=== PATIENT | male | born 1935 | race Caucasian/White ===

== ENCOUNTER 2017-10-17 03:28 | Observation (INO) ==
--- NOTE | 2017-10-17 03:47 | Emergency Department Note ---
Disposition Clinical Impression: Pharyngeal edema, Tonsillar hypertrophy Leukocytosis Qualifiers: Leukocytosis type: unspecified Qualified Code(s): D72.829 - Elevated white blood cell count, unspecified Disposition: Admitted As Inpatient Condition: Fair Referrals: Gerald Rodriguez DO [Primary Care Provider] - Forms: Work/School Release, ED Satisfaction Letter General Adult HPI - General Chief complaint: ED Skin/Abscess/Foreign Body Stated complaint: Swelling on neck Time Seen by Provider: 10/17/17 03:36 Source: patient Mode of arrival: private vehicle Limitations: no limitations Nursing Notes Reviewed: Yes Vital Signs Reviewed: Yes - History of Present Illness HPI Narrative: 82-year-old male presents to the ER with a chief complaint of sore throat and neck swelling. Patient states he has had a sore throat for roughly 4 days. He was seen at urgent care yesterday and placed on amoxicillin. He reports that he took a dose of the amoxicillin and started noticing some redness and swelling to the front of his neck. States he felt short of breath and that happened. He stopped taking the amoxicillin after that. He is unsure if he has ever taken this before. He states that his voice has seemed or higher pitched. Does have some discomfort whenever he swallows. No nausea or vomiting. States he did have a fever there yesterday of 101. No other complaints. Pt Subjective Complaint: Sore throat, neck swelling Onset (ago): day(s) Location: other (Throat) Pain Scale: 10 Improves with: nothing Worsens with: nothing Associated symptoms: Reports: fever/chills. Denies: nausea/vomiting Treatments Prior to Arrival: other - Related Data Allergies Allergy/AdvReac Type Severity Reaction Status Date / Time rivaroxaban [From Xarelto] Allergy See Verified 10/17/17 03:32 Comments All systems ED: reviewed and negative except as stated. Constitutional: Reports: fever ENT ED: Reports: throat pain Gastrointestinal: Denies: nausea, vomiting Past Medical History - Past Medical History Attestation: Yes The following information was validated with the patient. Source: patient Medical history: Reports: atrial fibrillation, hypertension - Social History Smoking Status: Never smoker Smokeless Tobacco Status: No Alcohol use: Reports: none Drug use: Reports: none Physical Exam - General Limitations: no limitations General appearance: alert, in no apparent distress - Head Head exam: atraumatic, normocephalic - Eye Eye exam: Present: normal appearance - ENT ENT exam: normal exam - Expanded ENT Exam Throat exam: Present: tonsillar erythema, tonsillomegaly, tonsillar exudate, R peritonsillar mass - Neck Neck exam: Present: full ROM, other (There is some erythema and mild soft tissue swelling over the anterior neck) - Chest Chest inspection: Present: normal inspection, symmetric chest wall rise - Respiratory Respiratory exam: Present: normal lung sounds bilaterally - Cardiovascular Cardiovascular exam: Present: regular rate, normal rhythm, normal heart sounds - Abdominal Exam Abdominal exam: Present: soft, Non-Tender. Absent: tenderness - Extremities Exam Extremities exam: Present: normal inspection, full ROM - Expanded Upper Extremity Exam Shoulder exam: Present: normal inspection, full ROM Arm exam: Present: normal inspection, full ROM Elbow exam: Present: normal inspection, full ROM Forearm/Wrist exam: Present: normal inspection, full ROM Hand exam: Present: normal inspection, full ROM - Expanded Lower Extremity Exam Hip/Pelvis exam: Present: normal inspection, full ROM Upper leg exam: Present: normal inspection, full ROM Knee exam: Present: normal inspection, full ROM Lower leg exam: Present: normal inspection, full ROM Ankle exam: Present: normal inspection, full ROM Foot/toe exam: Present: normal inspection, full ROM - Skin Skin exam: Present: warm, dry Course Course Narrative: Patient seen and examined. Vital signs reviewed. We will get a strep swab as well as basic labs and CT scan for evaluation of peritonsillar abscess as well as the swelling in his anterior neck. - Reevaluation(s) Reevaluation #1: CT findings with tonsillar enlargement striation with soft tissue swelling into the hypopharynx. Imaging reviewed. ENT paged for consultation. We will give him a dose of clindamycin here and IV fluids for his tachycardia. Time: 06:13 - Consultations Consultation #1: Spoke with the on-call ENT provider Dr. Polanco. Discussed the patient's history exam imaging and labs. Recommends clindamycin and Decadron. They will see the patient in consultation. Vital Signs Temperature 98.2 F 10/17/17 03:29 Pulse Rate 114 10/17/17 03:29 Respiratory Rate 20 10/17/17 03:29 Blood Pressure 149/96 10/17/17 03:29 O2 Sat by Pulse Oximetry 95 10/17/17 03:29 Temperature 98.2 F 10/17/17 03:29 Pulse Rate 109 10/17/17 06:33 Respiratory Rate 18 10/17/17 06:33 Blood Pressure 149/110 10/17/17 06:33 O2 Sat by Pulse Oximetry 93 10/17/17 06:33 Oxygen Delivery Oxygen Delivery Room Air Medical Decision Making - MDM Narrative Medical decision making narrative: 82-year-old male presents to the ER due to sore throat for 4 days. Treated with amoxicillin starting yesterday. Noticed a change in his voice today. No difficulty handling secretions. No respiratory distress. Right tonsillar swelling. CT without evidence of abscess however there is soft tissue swelling to the hypopharynx. White count of 22.6. Case discussed with ENT. Patient given clindamycin and Decadron. Admitted to the hospitalist service with ENT consultation. - Lab Data Lab results reviewed: Yes I reviewed the patient's lab results. Result diagrams: 10/17/17 04:13 10/17/17 04:13 Lab Results 10/17/17 10/17/17 Range/Units 04:13 04:13 WBC 22.6 H (4.3-11.1) K/mcL RBC 4.28 (4.19-5.50) M/mcL Hgb 13.1 (12.9-16.9) g/dL Hct 38.8 (37.5-50.1) % MCV 90.7 (83.0-100.0) fL MCH 30.6 (28.0-33.3) pg MCHC 33.8 (31.6-35.5) g/dL RDW 13.2 (11.5-14.5) % Plt Count 129 L (140-400) K/mcL MPV 9.5 (9.4-12.4) fL Immature Gran % 2.4 (0-4) % Seg Neutrophils % 87.2 % Lymphocytes % 3.2 % Monocytes % 7.1 % Eosinophils % 0.0 % Basophils % 0.1 % Neutrophils # 19.7 H (1.6-8.9) K/mcL Lymphocytes # 0.7 (0.6-4.6) K/mcL Monocytes # 1.6 H (0.0-1.3) K/mcL Eosinophils # 0.0 (0.0-0.6) K/mcL Basophils # 0.0 (0.0-0.2) K/mcL Platelet Estimate Slight Decrease L (Normal) Sodium 127 L (136-145) mEq/L Potassium 4.2 (3.5-5.1) mEq/L Chloride 99 (98-107) mEq/L Carbon Dioxide 18 L (23-29) mEq/L BUN 17 (8-23) mg/dL Creatinine 0.78 (0.70-1.30) mg/dL Est GFR ( Amer) > 60 (> 60) Est GFR (Non-Af Amer) > 60 (> 60) BUN/Creatinine Ratio 22 (6-26) Glucose 134 H (70-105) mg/dL Calculated Osmolality 268 L (280-300) Calcium 9.0 (8.6-10.3) mg/dL - Radiology Data Radiology results reviewed: Yes I reviewed the patient's radiology results. Soft Tissue Neck CT 10/17/17 03:43 IMPRESSION: Stanton tonsillar and pharyngeal soft tissue swelling as described, favor infectious/ inflammatory etiology. Recommend follow-up after appropriate treatment. D/ / Rudy Miramontes MD / Rudy Miramontes MD Interpreting Provider: Rudy Miramontes MD S.B.A.R. - S.B.A.R. Situation: Demographics, MOA Background: Presenting Complaint, Relevant PMH, Meds, & Allergies Assessment: Course and respsone to treatment, Exam Concerns, Patient/Family Expectation, Pertinant Lab Results Recommendation: Barrier(s) to disposition, Recommendation based on pending studies, treatments, or consults S.B.A.R. Report Given to: Dr. Navarrete Attestation Statement - Attestation Attestation: I, Brigido Riley MD, personally evaluated this patient and discussed their management with the resident physician. I reviewed the resident's note and agree with the documented findings, medical decision making, and plan of care. 82-year-old male presents to the emergency department with a complaint of sore throat for 4 days prior to arrival. He was seen in urgent care yesterday and was given amoxicillin. He states he took one dose of the amoxicillin last evening and then after taking the amoxicillin he developed some swelling across the anterior neck as well as some increased pain and swelling in his throat. Some mild difficulty swallowing and breathing with some mild hoarseness of his voice. Patient states that he has had fever. On examination patient is a well-developed well-nourished well-appearing elderly male in no acute distress. He is alert and oriented 3. There is no cyanosis or diaphoresis. Patient is able to speak without difficulty. There does seem to be some slight muffling of his voice. Mucous membranes are moist. There is marked pharyngeal injection, especially on the right with moderate right asymmetric edema with swelling over to the midline. Neck is supple with no obvious lymphadenopathy. There is some localized subcutaneous edema to the mid anterior throat area. This is not firm or indurated or fluctuant. Breath sounds are clear and equal bilaterally. Heart regular. Abdomen soft and nontender with normal bowel sounds. Labs reviewed. WBC 22.6 with 87.2% segs. Soft tissue neck CT shows palatine tonsillar and pharyngeal soft tissue swelling, favor infectious/ inflammatory etiology. Dr. Rivera discussed with the ENT control system manager, Dr. Polanco. She recommended IV antibiotics and steroids and admission by the hospitalist. The hospitalist, Dr. Navarrete, was consulted and accepted the admission of the patient.
[2017-10-17 04:24] LABS: Basophils % 0.1 %; Hematocrit 38.8 % (37.5-50.1); Hemoglobin 13.1 g/dL (12.9-16.9); Immature Granulocytes % 2.4 % (0-4); Lymphocytes % 3.2 %; Mean Corpuscular HGB Conc 33.8 g/dL (31.6-35.5); Mean Corpuscular Hemoglobin 30.6 pg (28.0-33.3); Mean Corpuscular Volume 90.7 fL (83.0-100.0); Mean Platelet Volume 9.5 fL (9.4-12.4); Monocytes % 7.1 %; Platelet Count 129 K/mcL (140-400); Red Blood Count 4.28 M/mcL (4.19-5.50); Red Cell Distribution Width 13.2 % (11.5-14.5); Segmented Neutrophils % 87.2 %
[2017-10-17 04:25] LABS: Lymphocytes # 0.7 K/mcL (0.6-4.6); Monocytes # 1.6 K/mcL (0.0-1.3); Neutrophils # 19.7 K/mcL (1.6-8.9)
[2017-10-17 04:47] LABS: BUN/Creatinine Ratio 22 (6-26); Blood Urea Nitrogen 17 mg/dL (8-23); Carbon Dioxide 18 mEq/L (23-29); Chloride 99 mEq/L (98-107); Glucose 134 mg/dL (70-105); Osmolality,Calculated 268 (280-300); Potassium 4.2 mEq/L (3.5-5.1); Sodium 127 mEq/L (136-145); eGFR For African Americans > 60 (> 60); eGFR For Non-African Americans > 60 (> 60)
[2017-10-17 04:54] LABS: Platelet Estimate Slight Decrease (Normal)
[2017-10-17] MEDS ORDERED: Clindamycin 600 MG/50 ML 600 MG/50 ML IV.SOLN IVPB ONE (06:10)
[2017-10-17] MEDS ORDERED: 0.9 % Sodium Chloride 500 ML IVC ONE (06:10)
[2017-10-17] MEDS ORDERED: Dexamethasone 4 MG/ML VIAL IVP ONE (06:20)
--- NOTE | 2017-10-17 09:16 | ENT - Consult Note ---
<Ramona Rowe A - Last Filed: 10/17/17 15:30> Date of Encounter: 10/17/17 Time of Encounter: 09:06 Assessment and Plan (1) Pharyngeal edema Status: Acute Patient seen and examined at bedside today. Flexible Nasolaryngoscopy performed. Airway patent with some inflammation of the pharyngeal mucosa, supraglottic edema noted, open epiglottic space, and right inferior tonsil tissue hypertrophy. Patient with no respiratory distress, shortness of breath, or stridor noted. CT scan reviewed, which demonstrated a patent airway, Soft tissue swelling and thickening in the lateral and posterior pharyngeal rondon, and no abscess at this time. Patient should be monitored closely with continuous pulse ox, and head of bed elevated. Recommend additional doses of IV decadron q8h x3 doses and IV clindamycin. If pharyngeal swelling worsens or airway becomes compromised patient may require intubation or tracheostomy, continue to monitor closely at this time. (2) Tonsillitis Status: Acute Patient currently with asymmetrical enlargement of right tonsil. No signs Of abscess at this time. CT scan also reviewed which did not demonstrate abscess. Initial throat swab negative for strep, cultures pending. Patient started on IV clindamycin and IV Decadron. (3) Acute airway obstruction Status: Acute Airway noted to be patent at this time, as demonstrated by CT scan and noted upon examination with Flexible Nasolaryngoscopy today. Continue to monitor closely with continuous pulse ox and head of bed elevation. Patient should be rescoped with flexible nasolaryngoscopy before being discharged home to ensure no airway obstruction is present. History of Present Illness Consult date: 10/17/17 Reason for ENT Consult: airway complication Requesting physician: Murali Regan History of present illness: Patient is an 82 year old male, who presents to the emergency department with sore throat and associated throat swelling. Patient reports he has had a sore throat for approximately 4 days and was seen in urgent care recently and prescribed amoxicillin. He states he felt that he was having a reaction to the amoxicillin and discontinued taking it. He reports odynophagia and hoarseness, but denies any difficulty with swallowing, or any shortness of breath. Patient also reports fevers for several days and generalized weakness. Past Med Surg Social Fam HX - Past Medical History Medical history: atrial fibrillation, hypertension - Social History Smoking Status: Never smoker Smokeless Tobacco Status: No Alcohol use: none Drug use: none Medications and Allergies Aspirin [Lo-Dose Aspirin EC] 81 mg PO DAILY 10/17/17 [History] Finasteride [Proscar] 5 mg PO DAILY 10/17/17 [History] Gabapentin [Neurontin] 100 mg PO BID 10/17/17 [History] Nitroglycerin [Nitrostat] 0.4 mg SL Q5M PRN 10/17/17 [History] Simvastatin [Zocor] 20 mg PO HS 10/17/17 [History] Tamsulosin [Flomax] 0.4 mg PO DAILY 10/17/17 [History] Temazepam [Restoril] 30 mg PO HS 10/17/17 [History] amLODIPine [Norvasc] 5 mg PO DAILY 10/17/17 [History] 3 Allergy/AdvReac Type Severity Reaction Status Date / Time Amoxicillin Allergy Swelling Verified 10/20/17 20:50 of Lip/Tongue/Throat rivaroxaban [From Xarelto] AdvReac See Verified 10/17/17 06:56 Comments ENT - ROS - Constitutional Constitutional ROS: as per HPI - EENT Nose, mouth and throat: odynophagia, sore throat, throat swelling ENT Exam Initial Vital Signs Temp Pulse Resp BP Pulse Ox 98.2 F 114 20 149/96 95 10/17/17 03:29 10/17/17 03:29 10/17/17 03:29 10/17/17 03:29 10/17/17 03:29 - General physical appearance well developed, well nourished, no distress - Eyes PERRL, normal ocular movement - ENT normal pinna (tonsillar asymmetry noted, area of right tonsillar pillar and lingual tonsil enlarged and injected, with tonsil stone present, area noted to be firm and indurated with palpation, uvula midline, upper and lower dentures noted. Septum grossly midline, with normal inferior turbinates bilaterally. Left ear with cerumen impaction unable to visualize TM, and right ear with normal TM. ), normal nares, CN 2-12 grossly intact, Other - Neck no masses, trachea midline, no lymphadectomy - Respiratory normal expansion, normal respiratory effort, other (No stridor noted. ) Exam Initial Vital Signs Temp Pulse Resp BP Pulse Ox 98.2 F 114 20 149/96 95 10/17/17 03:29 02/15/18 03:29 10/17/17 03:29 10/17/17 03:29 10/17/17 03:29 Results - Labs 10/17/17 04:13 10/17/17 04:13 Abnormal lab results WBC 22.6 K/mcL (4.3-11.1) H 10/17/17 04:13 Plt Count 129 K/mcL (140-400) L 10/17/17 04:13 Neutrophils # 19.7 K/mcL (1.6-8.9) H 10/17/17 04:13 Monocytes # 1.6 K/mcL (0.0-1.3) H 10/17/17 04:13 Platelet Estimate Slight Decrease (Normal) L 10/17/17 04:13 Sodium 127 mEq/L (136-145) L 10/17/17 04:13 Carbon Dioxide 18 mEq/L (23-29) L 10/17/17 04:13 Glucose 134 mg/dL (70-105) H 10/17/17 04:13 Calculated Osmolality 268 (280-300) L 10/17/17 04:13 All other labs normal. Consult Discharge Plan - Plan Referrals: Gerald Rodriguez DO [Primary Care Provider] - <Sagrario Polanco - Last Filed: 10/21/17 08:07> Date of Encounter: 10/21/17 ENT Exam Initial Vital Signs Temp Pulse Resp BP Pulse Ox 98.2 F 114 20 149/96 95 10/17/17 03:29 10/17/17 03:29 10/17/17 03:29 10/17/17 03:29 10/17/17 03:29 Exam Initial Vital Signs Temp Pulse Resp BP Pulse Ox 98.2 F 114 20 149/96 95 10/17/17 03:29 10/17/17 03:29 10/17/17 03:29 10/17/17 03:29 10/17/17 03:29 Results - Labs 10/18/17 03:51 10/18/17 03:51 Abnormal lab results WBC 18.5 K/mcL (4.3-11.1) H 10/18/17 03:51 Plt Count 139 K/mcL (140-400) L 10/18/17 03:51 Neutrophils # 16.8 K/mcL (1.6-8.9) H 10/18/17 03:51 Platelet Estimate Slight Decrease (Normal) L 10/18/17 03:51 Sodium 127 mEq/L (136-145) L 10/18/17 03:51 Chloride 97 mEq/L (98-107) L 10/18/17 03:51 Carbon Dioxide 21 mEq/L (23-29) L 10/18/17 03:51 Creatinine 0.64 mg/dL (0.70-1.30) L 10/18/17 03:51 BUN/Creatinine Ratio 33 (6-26) H 10/18/17 03:51 Glucose 147 mg/dL (70-105) H 10/18/17 03:51 Calculated Osmolality 270 (280-300) L 10/18/17 03:51 All other labs normal. - Attending Attestation Patient was seen and examined by myself with nurse practioner. Bedside flexible laryngoscopy was performed at bedside. Please see procedure note. Agree with the above assessment and plan as this was formulated together.
--- NOTE | 2017-10-17 09:30 | Internal Med History&Physical ---
Date of Encounter: 10/17/17 Time of Encounter: 09:25 Assessment and Plan (1) Tonsillitis Current visit: Yes Status: Acute Rapid strep test was negative. ENT was consulted. They recommended clindamycin and dexamethasone. We will continue with clindamycin and monitor clinically. We will keep the patient nothing by mouth for now. (2) Sepsis Current visit: Yes Status: Acute Likely secondary to tonsillitis and pharyngitis. I will obtain blood cultures, lactic acid level, throat culture. He was started on clindamycin per ENT recommendations. I will continue with clindamycin for tonsillitis. We will monitor WBC trend and temperature curve. Qualifiers: Sepsis type: sepsis due to unspecified organism Qualified Code(s): A41.9 - Sepsis, unspecified organism (3) BPH (benign prostatic hyperplasia) Current visit: Yes Status: Acute Continue Flomax and finasteride. Qualifiers: Lower urinary tract symptom presence: symptoms present Lower urinary tract symptom detail: nocturia Qualified Code(s): N40.1 - Benign prostatic hyperplasia with lower urinary tract symptoms; R35.1 - Nocturia; R35.1 - Nocturia (4) Essential hypertension Current visit: Yes Status: Acute Continue with Norvasc (5) DVT prophylaxis Current visit: Yes Status: Acute Encourage ambulation. He is fully ambulatory and therefore no pharmacological prophylaxis is needed. (6) Hyponatremia Current visit: Yes Status: Acute Her medical record review appears to be chronic. Sodium in January 2016 was 131 and 135 and April 2014. Currently at 127, slightly worse than his baseline likely related to decreased oral intake. We will monitor. Internal Medicine - H&P: HPI Chief complaint: Sore throat Admitted From: Emergency Dept Plans for Post Hospital Care: Home History of present illness: Mr. Guzman is a 82 year old male with past medical history significant for hypertension and BPH who presented to the hospital for evaluation of sore throat. Symptoms started 4 days ago and got progressively worse. Yesterday he experienced 8/10 aching sore throat mostly on the right side, reports associated hoarseness but no difficulty swallowing or shortness of breath. Throat soreness is exacerbated by swallowing and he reports having a poor appetite for the last 4 days. Reports associated subjective fevers and generalized weakness. Measured temperature at the urgent care was 101.4. He was prescribed antibiotics however his symptoms do not improve. 2 nights ago he woke up to go to the bathroom and felt generally weak and while trying to climb back in the recliner he stood up and fell over. He denies any significant injury, denies loss of consciousness. A 10 point review of systems was negative except as above. Family history was reviewed and found to be noncontributory. Past Med Surg Social Fam HX - Past Medical History Medical history: atrial fibrillation, hypertension - Social History Smoking Status: Never smoker Smokeless Tobacco Status: No Alcohol use: none Drug use: none Internal Medicine - H&P: Meds Aspirin [Lo-Dose Aspirin EC] 81 mg PO DAILY 10/17/17 [History] Finasteride [Proscar] 5 mg PO DAILY 10/17/17 [History] Gabapentin [Neurontin] 100 mg PO BID 10/17/17 [History] Nitroglycerin [Nitrostat] 0.4 mg SL Q5M PRN 10/17/17 [History] Simvastatin [Zocor] 20 mg PO HS 10/17/17 [History] Tamsulosin [Flomax] 0.4 mg PO DAILY 10/17/17 [History] Temazepam [Restoril] 30 mg PO HS 10/17/17 [History] amLODIPine [Norvasc] 5 mg PO DAILY 10/17/17 [History] 3 Allergy/AdvReac Type Severity Reaction Status Date / Time rivaroxaban [From Xarelto] AdvReac See Verified 10/17/17 06:56 Comments All Systems PM: A 10-system review of systems was performed and is negative for pertinent findings except as documented above in the HPI. - Constitutional Vitals: Temp Pulse Resp BP Pulse Ox 98.2 F 109 18 149/110 93 10/17/17 03:29 10/17/17 06:33 10/17/17 06:33 10/17/17 06:33 10/17/17 06:33 General appearance: Present: A&O X 3, no acute distress, answers questions appropriately - Head Head exam: Present: atraumatic, normocephalic - Eye Eye exam: Present: PERRL, conjuntiva pink, sclera anicteric Pupils: Present: PERRL - ENT ENT exam: Present: mucous membranes moist Additional comments: Right tonsillar erythema and swelling without exudates or any visible bleeding. - Neck Neck exam general surgery: Present: supple, trachea midline. Absent: lymphadenopathy - Cardiovascular Cardiovascular exam: Present: RRR, +S1, +S2, systolic murmur. Absent: diastolic murmur, gallop, rubs - GI/Abdominal GI/Abdominal exam: Present: normal bowel sounds, soft, no peritoneal signs. Absent: distended, tenderness - Extremities Exam Extremities exam: Present: warm, radial pulses palpable and symmetrical. Absent : calf tenderness, cyanotic, pedal edema - Neurological Exam Neurological exam: Present: CN II-XII intact, oriented X3, no focal deficits. Absent: facial droop, speech deficit - Skin Skin exam: Present: dry, intact Internal Med - H&P Results - Labs CBC & Chem 7: 10/17/17 04:13 10/17/17 04:13 - Impressions CT soft tissue neck w con PHARYNX/LARYNX: There is marked soft tissue swelling and thickening involving the right palatine tonsil with a somewhat striated appearance. Soft tissue thickening extends to involve the lateral and posterior pharyngeal rondon with resultant narrowing of the piriform sinus. There is thickening of the lateral pharyngeal wall on the left as well, on both sides extending into the hypopharynx. No peritonsillar abscess. The immediate supraglottic region and vocal cords are normal in appearance. Base of tongue is normal in appearance. IMPRESSION: [place] tonsillar and pharyngeal soft tissue swelling as described, favor infectious/ inflammatory etiology. Recommend follow-up after appropriate treatment.
[2017-10-17] MEDS ORDERED: Acetaminophen 325 MG TABLET PO PRN (09:51)
[2017-10-17] MEDS: Dexamethasone 10 MG/ML VIAL IVP SCH ×3 (12:48→16:52)
--- NOTE | 2017-10-17 14:49 | ENT - Procedure Note ---
Date of procedure: 10/17/17 Pre-op diagnosis: Acute tonsillitis, airway obstruction Post-op diagnosis: same Procedure: Flexible laryngoscopy: Procedure was explained to the patient at the bedside verbal consent was obtained. Bilateral nares are sprayed with a 50-50 mixture of oxymetazoline and topical lidocaine. Time was given to allow anesthesia as well as decongestion of the nasal airway. Flexible laryngoscope was then advanced into the right naris. Nasal mucosa was within normal limits without lesion or mass. Scope was further advanced, nasopharynx was within normal limits. Tonsil was enlarged on the right and did extend inferiorly into the vallecula. There is also soft tissue swelling of the hypopharynx laterally on the right so that it was partially obstructing the visualization of the petiole of the epiglottis on the right side, this was easily transversed along the left side of the edema to visualize the glottis. True vocal cords had normal mucosa and normal movement with a good glottic opening. There was edema again that it was watery in nature and extended down the hypopharynx so that the edema was just superior to the glottis. This did not obstruct the glottis but did abut the glottic opening with vocalization. There was very minimal pooling of secretions. There is no purulence. Piriform sinus was open and healthy on the left. Scope was removed. Patient tolerated this procedure well. Patient with thickening of the mucosa of the hypopharynx extending to the subglottis and does reach just superior to the glottic opening but does not obstruct it. CPT: 10821 Laryngoscopy, flexible fiberoptic; diagnostic Anesthesia: topical Was there an cardiology physician assistant present: No Estimated blood loss (cc): 0 Specimens collected: none Condition: stable
[2017-10-17] MEDS: Clindamycin 600 MG/50 ML 600 MG/50 ML IV.SOLN IVPB SCH ×2 (16:52→23:23)
[2017-10-17] MEDS ORDERED: Gabapentin 100 MG CAPSULE PO SCH (21:00)
[2017-10-17] MEDS: Temazepam 15 MG CAPSULE PO SCH ×2 (21:39→23:23)
[2017-10-18 04:17] VITALS: BP 161/74
[2017-10-18 04:32] LABS: Basophils % 0.2 %; Hematocrit 41.4 % (37.5-50.1); Hemoglobin 14.2 g/dL (12.9-16.9); Immature Granulocytes % 1.6 % (0-4); Lymphocytes # 0.6 K/mcL (0.6-4.6); Lymphocytes % 3.4 %; Mean Corpuscular HGB Conc 34.3 g/dL (31.6-35.5); Mean Corpuscular Hemoglobin 30.9 pg (28.0-33.3); Monocytes # 0.8 K/mcL (0.0-1.3); Monocytes % 4.1 %; Neutrophils # 16.8 K/mcL (1.6-8.9); Platelet Count 139 K/mcL (140-400); Red Cell Distribution Width 13.2 % (11.5-14.5); Segmented Neutrophils % 90.7 %
[2017-10-18 05:03] LABS: BUN/Creatinine Ratio 33 (6-26); Blood Urea Nitrogen 21 mg/dL (8-23); Calcium 9.2 mg/dL (8.6-10.3); Carbon Dioxide 21 mEq/L (23-29); Chloride 97 mEq/L (98-107); Glucose 147 mg/dL (70-105); Osmolality,Calculated 270 (280-300); Potassium 4.3 mEq/L (3.5-5.1); Sodium 127 mEq/L (136-145); eGFR For African Americans > 60 (> 60); eGFR For Non-African Americans > 60 (> 60)
[2017-10-18 05:35] LABS: Platelet Estimate Slight Decrease (Normal)
[2017-10-18] MEDS ORDERED: *HR* LORazepam 2 MG/ML VIAL IVP ONE (06:17)
[2017-10-18] MEDS: Clindamycin 600 MG/50 ML 600 MG/50 ML IV.SOLN IVPB SCH (06:55)
[2017-10-18] MEDS ORDERED: amLODIPine 5 MG TABLET PO SCH (09:00)
[2017-10-18] MEDS ORDERED: Finasteride 5 MG TABLET PO SCH (09:00)
--- NOTE | 2017-10-18 15:13 | ENT - Progress Note ---
Date of Encounter: 10/18/17 Time of Encounter: 15:10 - Assessment and Plan (1) Pharyngeal edema Status: Acute Patient seen and examined at bedside today. Flexible Nasolaryngoscopy repeated with Dr. Rolle ENT. Airway patent with some inflammation of the pharyngeal mucosa , supraglottic edema noted, open epiglottic space, and right inferior tonsil tissue hypertrophy. Patient with no respiratory distress, shortness of breath, or stridor noted. Continue to monitor closely with continuous pulse ox, and head of bed elevated. Continue IV clindamycin. (2) Tonsillitis Status: Acute Final throat culture is negative for strep. (3) Acute airway obstruction Status: Acute Airway without compromise upon examination with Flexible Nasolaryngoscopy today. Continue to monitor closely with continuous pulse ox and head of bed elevation. Patient should be rescoped with flexible nasolaryngoscopy before being discharged home to ensure no airway obstruction is present. Subjective Patient reports: no new complaints, tolerating liquids well, tolerating a regular diet, voiding w/o difficulty, afebrile Objective Initial Vital Signs Temp Pulse Resp BP Pulse Ox 98.2 F 114 20 149/96 95 10/17/17 03:29 10/17/17 03:29 10/17/17 03:29 10/17/17 03:29 10/17/17 03:29 - General physical appearance well developed, well nourished, no distress - Eyes PERRL, normal ocular movement - ENT normal pinna, normal nares, CN 2-12 grossly intact, Other - Neck no masses, trachea midline, no lymphadectomy - Respiratory normal expansion, normal respiratory effort - Labs 10/18/17 03:51 10/18/17 03:51 Diabetes panel 10/18/17 Range/Units 03:51 Sodium 127 L (136-145) mEq/L Potassium 4.3 (3.5-5.1) mEq/L Chloride 97 L (98-107) mEq/L Carbon Dioxide 21 L (23-29) mEq/L BUN 21 (8-23) mg/dL Creatinine 0.64 L (0.70-1.30) mg/dL Glucose 147 H (70-105) mg/dL Calcium 9.2 (8.6-10.3) mg/dL Calcium panel 10/18/17 Range/Units 03:51 Calcium 9.2 (8.6-10.3) mg/dL Pituitary panel 10/18/17 Range/Units 03:51 Sodium 127 L (136-145) mEq/L Potassium 4.3 (3.5-5.1) mEq/L Chloride 97 L (98-107) mEq/L Carbon Dioxide 21 L (23-29) mEq/L BUN 21 (8-23) mg/dL Creatinine 0.64 L (0.70-1.30) mg/dL Glucose 147 H (70-105) mg/dL Calcium 9.2 (8.6-10.3) mg/dL Adrenal panel 10/18/17 Range/Units 03:51 Sodium 127 L (136-145) mEq/L Potassium 4.3 (3.5-5.1) mEq/L Chloride 97 L (98-107) mEq/L Carbon Dioxide 21 L (23-29) mEq/L BUN 21 (8-23) mg/dL Creatinine 0.64 L (0.70-1.30) mg/dL Glucose 147 H (70-105) mg/dL Calcium 9.2 (8.6-10.3) mg/dL Consult Discharge Plan - Plan Referrals: Gerald Rodriguez DO [Primary Care Provider] -
--- NOTE | 2017-10-20 17:36 | Electrocardiograph Report ---
[place] [id number] Test Date: 2017-10-17 Pat Name: Harry Guzman Department: 103 Room: [facility] Gender: M Accountant Tax: BEV : 1935 Requested By: Murali Regan Order Number: [id number] Reading MD: Lubna Gasca Measurements Intervals [place] Rate: 95 P: OK: 0 QRS: -73 QRSD: 174 T: 9 QT: 379 QTc: 432 Interpretive Statements ATRIAL FIBRILLATION RIGHT BUNDLE BRANCH BLOCK [120+ ms QRS DURATION, UPRIGHT V1, 40+ ms S IN I/aVL/V4/V5/V6] LEFT ANTERIOR FASCICULAR BLOCK [QRS AXIS <= -45, QR IN I, RS IN II] Electronically Signed On 10-20-2017 17:35:35 EST by Lubna Gasca
== END 2017-10-18 08:35 | disposition left against medical advice (07) ==
LOC: EMEROO 03:28 → 2SOUTHHOLD 03:28 → 3NENU 18:20
PROVIDERS: ADMIT Internal Medicine; ATTEND Internal Medicine

== ENCOUNTER 2017-10-20 20:34 | Inpatient (IN) ==
[2017-10-20] MEDS ORDERED: Dexamethasone 4 MG/ML VIAL IVP ONE (21:47)
[2017-10-20] MEDS ORDERED: Ketorolac 15 MG/ML VIAL IVP ONE (23:16)
[2017-10-20] MEDS ORDERED: Oxymetazoline Nasal SPRAY BOTTLE NS ONE (23:35)
--- NOTE | 2017-10-21 00:19 | Emergency Department Note ---
Disposition Clinical Impression: Pharyngeal or nasopharyngeal edema Disposition: Admitted As Inpatient Condition: Good Time of Disposition: 00:30 General Adult HPI - General Chief complaint: ED Allergic Reaction Stated complaint: throat swelling Time Seen by Provider: 10/20/17 21:26 Source: patient, family Limitations: no limitations Nursing Notes Reviewed: Yes Vital Signs Reviewed: Yes - History of Present Illness HPI Narrative: 82-year-old male presents to the ED because of painful swelling of his throat. He began last week with sore throat and was given a dose of amoxicillin. He subsequently developed worsening swelling and required admission to the hospital. Fiberoptic laryngoscopy revealed moderate edema of the right pharynx extending down to the level of his vocal cords. He was started on IV steroids with plans of continuing this for a couple of days. However, that night he became very agitated and left the hospital AGAINST MEDICAL ADVICE. He now returns because he feels the swelling is again worsening. He has pain with swallowing but no dyspnea. No voice changes. Onset (ago): day(s) Location: neck Pain Severity: moderate Pain Scale: 7 Quality: dull, constant Consistency: constant Improves with: nothing Worsens with: nothing Associated symptoms: Reports: denies other symptoms. Denies: shortness of breath - Related Data Home Medications Medication Instructions Recorded Confirmed Aspirin [Lo-Dose Aspirin EC] 81 mg PO DAILY 10/17/17 10/17/17 Finasteride [Proscar] 5 mg PO DAILY 10/17/17 10/17/17 Gabapentin [Neurontin] 100 mg PO BID 10/17/17 10/17/17 Nitroglycerin [Nitrostat] 0.4 mg SL Q5M PRN 10/17/17 10/17/17 Simvastatin [Zocor] 20 mg PO HS 10/17/17 10/17/17 Tamsulosin [Flomax] 0.4 mg PO DAILY 10/17/17 10/17/17 Temazepam [Restoril] 30 mg PO HS 10/17/17 10/17/17 amLODIPine [Norvasc] 5 mg PO DAILY 10/17/17 10/17/17 Allergies Allergy/AdvReac Type Severity Reaction Status Date / Time Amoxicillin Allergy Swelling Verified 10/20/17 20:50 of Lip/Tongue/Throat rivaroxaban [From Xarelto] AdvReac See Verified 10/17/17 06:56 Comments All systems ED: reviewed and negative except as stated. Constitutional: Denies: fever Eyes: Denies: as per HPI ENT ED: Denies: as per HPI, ear pain Cardiovascular: Denies: chest pain Respiratory: Denies: cough Gastrointestinal: Denies: nausea, vomiting Past Medical History - Past Medical History Attestation: Yes The following information was validated with the patient. Source: patient Medical history: Reports: atrial fibrillation, hypertension - Social History Smoking Status: Never smoker Smokeless Tobacco Status: No Alcohol use: Reports: none Drug use: Reports: none Physical Exam - General Limitations: no limitations General appearance: alert, in no apparent distress - Head Head exam: atraumatic, normocephalic - Eye Eye exam: Present: normal appearance - ENT ENT exam: other (Moderate edema of the right soft palate with effacement of the tonsillar pillars. Visible airway is otherwise patent. No stridor.) - Neck Neck exam: Present: normal inspection - Chest Chest inspection: Present: normal inspection - Respiratory Respiratory exam: Present: normal lung sounds bilaterally. Absent: respiratory distress - Cardiovascular Cardiovascular exam: Present: regular rate, normal rhythm - Abdominal Exam Abdominal exam: Present: soft, Non-Tender - Extremities Exam Extremities exam: Present: normal inspection - Back Exam Back exam: Present: normal inspection - Neurological Exam Neurological exam: Present: alert, oriented X3 - Psychiatric Psychiatric exam: Present: normal affect - Skin Skin exam: Present: warm, dry Course - Reevaluation(s) Reevaluation #1: Patient agreed to allow me to do fiberoptic laryngoscopy. Both nares were packed with a 50-50 solution of Afrin and viscous lidocaine. She was sat upright position and scope was passed to the right area without difficulty. However, once again into the nasopharynx and was moderate edema that made it difficult to continue passing the scope. I was able to navigate this towards his left side and get down to where I could visualize the epiglottis. The epiglottis itself appeared to have normal anatomy but was displaced towards the left by the pharyngeal edema. Vallecula was fairly edematous. I was able to visualize the vocal cords directly and had good mobility. The edema was encroaching upon the right vocal cord. Unable to visualize the arytenoids. D/W ; will see in the ED and repeat the fiberoptic laryngoscopy D/W Dr. Melton to admit Time: 00:19 Vital Signs Temperature 98.9 F 10/20/17 20:51 Pulse Rate 118 10/20/17 20:51 Respiratory Rate 16 10/20/17 20:51 Blood Pressure 133/72 10/20/17 20:51 O2 Sat by Pulse Oximetry 95 10/20/17 20:51 Temperature 98.9 F 10/20/17 20:51 Pulse Rate 118 10/20/17 20:51 Respiratory Rate 16 10/21/17 01:02 Blood Pressure 129/78 10/21/17 01:02 O2 Sat by Pulse Oximetry 96 10/21/17 01:26 Oxygen Delivery Oxygen Delivery Room Air
--- NOTE | 2017-10-21 01:03 | ENT - Consult Note ---
Date of Encounter: 10/21/17 Time of Encounter: 12:30 Assessment and Plan (1) Acute airway obstruction Current Visit: Yes Status: Acute Patient was admitted again based on 10 mg of Decadron be observed in the hospital and closely followed and not concerned with keeping him nothing by mouth at this point but if patient does not have total response to steroids over the next several days a biopsy might be appropriate also recommend appropriate antibiotic therapy 3 g Unasyn might be appropriate if not penicillin allergic History of Present Illness Reason for ENT Consult: airway complication History of present illness: White male 82 years of age admitted last week to the hospital for right pharyngeal swelling treated with IV steroids and eventually 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 After About 48 hours of hospitalization he was doing okay and came back in tonight because he felt like he was given some swelling again but is not as bad as before he is having some difficulty swallowing but not a lot of discomfort no temperature elevation old CT reviewed findings seem to be fairly consistent with the findings on the previous CT no CT was obtained tonight Past Med Surg Social Fam HX - Past Medical History Medical history: atrial fibrillation, hypertension - Social History Smoking Status: Never smoker Smokeless Tobacco Status: No Alcohol use: none Drug use: none Medications and Allergies Aspirin [Lo-Dose Aspirin EC] 81 mg PO DAILY 10/17/17 [History] Finasteride [Proscar] 5 mg PO DAILY 10/17/17 [History] Gabapentin [Neurontin] 100 mg PO BID 10/17/17 [History] Nitroglycerin [Nitrostat] 0.4 mg SL Q5M PRN 10/17/17 [History] Simvastatin [Zocor] 20 mg PO HS 10/17/17 [History] Tamsulosin [Flomax] 0.4 mg PO DAILY 10/17/17 [History] Temazepam [Restoril] 30 mg PO HS 10/17/17 [History] amLODIPine [Norvasc] 5 mg PO DAILY 10/17/17 [History] 3 Allergy/AdvReac Type Severity Reaction Status Date / Time Amoxicillin Allergy Swelling Verified 10/20/17 20:50 of Lip/Tongue/Throat rivaroxaban [From Xarelto] AdvReac See Verified 10/17/17 06:56 Comments ENT Exam Initial Vital Signs Temp Pulse Resp BP Pulse Ox 98.9 F 118 16 133/72 95 10/20/17 20:51 10/20/17 20:51 10/20/17 20:51 10/20/17 20:51 10/20/17 20:51 - General physical appearance well developed, well nourished, no distress, no pain. negative: moderate distress, severe distress, moderate pain, severe pain, cachectic, obese - Eyes PERRL, normal ocular movement, icteric - ENT normal pinna, normal nares, normal mucosa, no hearing loss, no congestion, Other (Flexible endoscopy performed through the right nostril revealing right pharyngeal swelling obliterating the right piriform the swelling was also palpated with a finger and could be seen in the posterior pharynx on oral pharyngeal exam). negative: decreased hearing, deviated nasal septum, nasal discharge, poor snf, dentures, mucosal exudate, dry mucosa - Neck no masses, trachea midline, no lymphadectomy. negative: deviated trachea, diffuse goiter, limited ROM - Respiratory normal expansion, normal respiratory effort, clear to percussion, clear to auscultation - Abdomen Abdomen: soft, non tender, bowel sounds, no tender, no surgical scars - Integumentary no rash, no growths, no abnormal pigmentation - Neurologic normal coordination, normal sensation - Musculoskeletal normal gait, normal posture - Psychiatric oriented to time, oriented to person, oriented to place, speech is normal, memory intact Exam Initial Vital Signs Temp Pulse Resp BP Pulse Ox 98.9 F 118 16 133/72 95 10/20/17 20:51 10/20/17 20:51 10/20/17 20:51 10/20/17 20:51 10/20/17 20:51 Results - Labs All other labs normal. Consult Discharge Plan - Plan Referrals: Gerald Rodriguez DO [Primary Care Provider] -
[2017-10-21] MEDS ORDERED: Naloxone 0.4 MG/ML INJ IVP PRN ×2 (04:30→04:45)
--- NOTE | 2017-10-21 04:33 | Internal Med History&Physical ---
<Alan Melton P - Last Filed: 10/21/17 04:48> Date of Encounter: 10/21/17 Internal Medicine - H&P: HPI History of present illness: Mr. Guzman is a 82 year old male Internal Medicine - H&P: Meds Aspirin [Lo-Dose Aspirin EC] 81 mg PO DAILY 10/17/17 [History] Finasteride [Proscar] 5 mg PO DAILY 10/17/17 [History] Gabapentin [Neurontin] 100 mg PO BID 10/17/17 [History] Nitroglycerin [Nitrostat] 0.4 mg SL Q5M PRN 10/17/17 [History] Simvastatin [Zocor] 20 mg PO HS 10/17/17 [History] Tamsulosin [Flomax] 0.4 mg PO DAILY 10/17/17 [History] Temazepam [Restoril] 30 mg PO HS 10/17/17 [History] amLODIPine [Norvasc] 5 mg PO DAILY 10/17/17 [History] 3 Allergy/AdvReac Type Severity Reaction Status Date / Time Amoxicillin Allergy Swelling Verified 10/20/17 20:50 of Lip/Tongue/Throat rivaroxaban [From Xarelto] AdvReac See Verified 10/17/17 06:56 Comments All Systems PM: A 10-system review of systems was performed and is negative for pertinent findings except as documented above in the HPI. - Constitutional Vitals: Temp Pulse Resp BP Pulse Ox 97.6 F 102 18 189/105 95 10/21/17 04:27 10/21/17 04:27 10/21/17 04:27 10/21/17 04:27 10/21/17 04:27 - Attending Attestation I examined this patient and my medical decision-making was reviewed with the Resident Physician. I agree with the documented findings, disposition and treatment plan as described except to the extent set forth below. I have examined this patient in the emergency room #25 Patient's daughter was at bedside. 82-year-old male Admitted with recurrent swelling/hoarseness of voice. Patient was recently signed out AMA from this hospital. Came with worsening difficulty in talking. ENT evaluation was in the emergency room suggestive of a vocal cord edema. Patient was started on IV antibiotics: azithromycin, as he is allergic to amoxicillin. Plan: Continue steroids/antibiotics for now. We will follow the recommendations from ENT. <Wanda Roe - Last Filed: 10/21/17 06:57> Date of Encounter: 10/21/17 Time of Encounter: 03:00 Internal Medicine - H&P: HPI Chief complaint: throat pain Admitted From: Home History of present illness: Pt is an 82 year old male who presents with c/o throat pain and swelling. Patient was admitted to the hospital on 10/17/17 for angioedema that developed after taking amoxicillin prescribed for a sore throat the day before. During that admission, he was evaluated by ENT and a flexible laryngoscopy revealed mucosal thickening of hypopharynx that extended to the level of the vocal cords without obstructing the glottis. He was started on IV steroids with intention of him staying a couple days to continue IV steroids, but pt left AMA. At home, he reports using ice packs to help decrease the right-sided throat swelling and was taking advil for pain relief, but came back to [place] today as these things were no longer helping. He admits to odynophagia with both liquids and solids; states steroids helped decrease the pain on swallowing. He denies difficulty breathing but admits to feeling like his voice sounds different. In the ED, he was given 10mg decadron IVP and evaluated by ENT (Dr. Rolle) with another flexible laryngoscopy. Laryngoscopy showed the epiglottis being displaced towards the left and edema encroaching upon the right vocal cord. He was admitted for steroid therapy and observation. Past Med Surg Social Fam HX - Past Medical History Medical history: atrial fibrillation, hypertension - Social History Smoking Status: Never smoker Smokeless Tobacco Status: No Alcohol use: none Drug use: none - Family History Father Living Status: Hx Family Cardiac Disorders: Yes (CAD) Mother Living Status: Hx Family Cardiac Disorders: Yes (CHF) All Systems PM: A 10-system review of systems was performed and is negative for pertinent findings except as documented above in the HPI. - Constitutional Vitals: Temp Pulse Resp BP Pulse Ox 98 F 94 16 153/79 96 10/21/17 01:11 10/21/17 01:11 10/21/17 01:11 10/21/17 01:11 10/21/17 01:26 General appearance: Present: A&O X 3, no acute distress, answers questions appropriately
[2017-10-21] MEDS ORDERED: Nitroglycerin 0.4 MG TAB.SUBL SL PRN (04:36)
[2017-10-21] MEDS ORDERED: Azithromycin 500 MG in D5% in Water 250 ML IVPB SCH (05:00)
[2017-10-21 07:18] LABS: Basophils % 0.2 %; Hematocrit 42.2 % (37.5-50.1); Hemoglobin 14.6 g/dL (12.9-16.9); Lymphocytes # 0.7 K/mcL (0.6-4.6); Lymphocytes % 6.4 %; Mean Corpuscular HGB Conc 34.6 g/dL (31.6-35.5); Mean Corpuscular Hemoglobin 30.7 pg (28.0-33.3); Mean Corpuscular Volume 88.7 fL (83.0-100.0); Monocytes # 0.4 K/mcL (0.0-1.3); Monocytes % 3.4 %; Platelet Count 183 K/mcL (140-400); Red Blood Count 4.76 M/mcL (4.19-5.50); Red Cell Distribution Width 13.1 % (11.5-14.5)
[2017-10-21 07:59] LABS: BUN/Creatinine Ratio 28 (6-26); Blood Urea Nitrogen 16 mg/dL (8-23); Calcium 8.7 mg/dL (8.6-10.3); Carbon Dioxide 26 mEq/L (23-29); Chloride 99 mEq/L (98-107); Glucose 161 mg/dL (70-105); Osmolality,Calculated 279 (280-300); Potassium 3.9 mEq/L (3.5-5.1); Sodium 132 mEq/L (136-145); eGFR For African Americans > 60 (> 60); eGFR For Non-African Americans > 60 (> 60)
[2017-10-21] MEDS: Gabapentin 100 MG CAPSULE PO SCH ×3 (09:47→21:55)
[2017-10-21] MEDS: amLODIPine 5 MG TABLET PO SCH ×2 (09:47→15:57)
[2017-10-21] MEDS: Finasteride 5 MG TABLET PO SCH ×2 (09:47→15:57)
[2017-10-21] MEDS: Aspirin Enteric Coated 81 MG Tablet PO SCH ×2 (09:47→15:57)
[2017-10-21] MEDS ORDERED: Dexamethasone 4 MG/ML VIAL IVP ONE (14:59)
[2017-10-21] MEDS: 0.9 % Sodium Chloride 1,000 ML IVC SCH (16:05)
[2017-10-21] MEDS: Clindamycin 600 MG/50 ML 600 MG/50 ML IV.SOLN IVPB SCH (16:05)
--- NOTE | 2017-10-21 16:06 | Internal Med Progress Note ---
Date of Encounter: 10/21/17 Time of Encounter: 16:05 - Assessment and plan (1) Tonsillitis Current Visit: Yes Status: Acute Assessment and plan: presented to ED with c/o neck pain and swelling on 10/17/17. Soft tissue neck CT with palatine tonsillar and pharyngeal soft tissue swelling. He was ttreated with IV ATB and setrpids but left AMA. He retunrs to ER on 10/20/17 with similar complaints. Evaluated by ENT in ED. Repeat soft tissue neck CT essentially unchanged. Received one-time dose IV Decadron. Continue IV clindamycin, steroids. ENT following (2) Pharyngeal edema Current Visit: Yes Status: Acute Assessment and plan: secondary to tonsillitis. Plan as noted above. (3) Essential hypertension Current Visit: No Status: Acute Assessment and plan: per hx. BP uncontrolled. Cont home BP medications. Add low dose BB. Monitor BP and titrate PRN (4) DVT prophylaxis Current Visit: No Status: Acute Assessment and plan: heparin - Subjective Interval history: Seen and examined at bedside, patient is new to me. Information obtained from chart review and patient report. Still with the swelling in his neck but overall significantly improved. He is having trouble swallowing small pills and liquids this morning. ENT aware of admission. - Constitutional Vitals: Temp Pulse Resp BP Pulse Ox 98.2 F 107 16 187/79 93 10/21/17 15:33 10/21/17 15:33 10/21/17 15:33 10/21/17 15:33 10/21/17 15:33 General appearance: Present: A&O X 3, no acute distress, answers questions appropriately - Head Head exam: Present: atraumatic, normocephalic - Eye Eye exam: Present: PERRL, conjuntiva pink, sclera anicteric Pupils: Present: PERRL - Neck Neck exam general surgery: Present: supple, trachea midline. Absent: lymphadenopathy Additional comments: + neck swelling - Respiratory Respiratory exam: Present: CTAB. Absent: accessory muscle use, rales, rhonchi, wheezes - Cardiovascular Cardiovascular exam: Present: RRR, +S1, +S2. Absent: diastolic murmur, gallop, rubs, systolic murmur - GI/Abdominal GI/Abdominal exam: Present: normal bowel sounds, soft, no peritoneal signs. Absent: distended, tenderness - Extremities Exam Extremities exam: Present: warm, radial pulses palpable and symmetrical. Absent : calf tenderness, cyanotic, pedal edema - Neurological Exam Neurological exam: Present: CN II-XII intact, oriented X3, no focal deficits. Absent: pronater drift, facial droop, speech deficit - Skin Skin exam: Present: dry, intact Internal Medicine: Result - Labs CBC & Chem 7: 10/21/17 07:08 10/21/17 07:08 Labs: Short CBC 10/21/17 Range/Units 07:08 WBC 11.2 H (4.3-11.1) K/mcL Hgb 14.6 (12.9-16.9) g/dL Hct 42.2 (37.5-50.1) % Plt Count 183 (140-400) K/mcL Neutrophils # 10.0 H (1.6-8.9) K/mcL BMP 10/21/17 07:08 Sodium 132 L Potassium 3.9 Chloride 99 Carbon Dioxide 26 BUN 16 Creatinine 0.58 L Glucose 161 H Calcium 8.7 Consult Discharge Plan - Plan Referrals: Gerald Rodriguez DO [Primary Care Provider] -
--- NOTE | 2017-10-21 17:04 | Operative Note ---
Date of procedure: 10/21/17 Pre-op diagnosis: pharyngeal edema Post-op diagnosis: same
--- NOTE | 2017-10-21 17:13 | Event Note ---
Date of Encounter: 10/21/17 Time of Encounter: 17:05 Patient seen and examined at bedside today. Overall voice quality is good and has improved since previous visit. Patient states he feels better overall and states he has had some improvement since receiving IV steroids. He denies shortness of breath and dysphagia. He is tolerating liquids without difficulty at this time. He has been seen by speech who provided diet recommendations. Will follow up and reassess tomorrow.
[2017-10-21] MEDS: *HR* Heparin 5,000 UNIT/ML VIAL SQ SCH (21:55)
[2017-10-21] MEDS: Temazepam 15 MG CAPSULE PO SCH (21:55)
[2017-10-21] MEDS: Dexamethasone 10 MG/ML VIAL IVP SCH (22:19)
[2017-10-22] MEDS: Clindamycin 600 MG/50 ML 600 MG/50 ML IV.SOLN IVPB SCH ×4 (00:38→23:52)
[2017-10-22] MEDS: *HR* Heparin 5,000 UNIT/ML VIAL SQ SCH ×3 (04:57→21:22)
[2017-10-22] MEDS: 0.9 % Sodium Chloride 1,000 ML IVC SCH (04:58)
[2017-10-22 07:05] LABS: Basophils % 0.5 %; Hematocrit 44.6 % (37.5-50.1); Hemoglobin 15.2 g/dL (12.9-16.9); Lymphocytes # 1.1 K/mcL (0.6-4.6); Lymphocytes % 13.1 %; Mean Corpuscular HGB Conc 34.1 g/dL (31.6-35.5); Mean Corpuscular Hemoglobin 30.3 pg (28.0-33.3); Mean Platelet Volume 9.2 fL (9.4-12.4); Monocytes # 0.4 K/mcL (0.0-1.3); Monocytes % 4.8 %; Neutrophils # 6.6 K/mcL (1.6-8.9); Platelet Count 278 K/mcL (140-400); Red Blood Count 5.01 M/mcL (4.19-5.50); Segmented Neutrophils % 78.6 %
[2017-10-22 07:29] LABS: BUN/Creatinine Ratio 33 (6-26); Blood Urea Nitrogen 19 mg/dL (8-23); Calcium 8.8 mg/dL (8.6-10.3); Carbon Dioxide 22 mEq/L (23-29); Chloride 99 mEq/L (98-107); Glucose 156 mg/dL (70-105); Osmolality,Calculated 275 (280-300); Potassium 4.2 mEq/L (3.5-5.1); Sodium 130 mEq/L (136-145); eGFR For African Americans > 60 (> 60); eGFR For Non-African Americans > 60 (> 60)
[2017-10-22] MEDS: Dexamethasone 10 MG/ML VIAL IVP SCH (09:12)
[2017-10-22] MEDS: amLODIPine 5 MG TABLET PO SCH (09:13)
[2017-10-22] MEDS: Gabapentin 100 MG CAPSULE PO SCH ×2 (09:13→21:22)
[2017-10-22] MEDS: Finasteride 5 MG TABLET PO SCH (09:13)
[2017-10-22] MEDS: Aspirin Enteric Coated 81 MG Tablet PO SCH (09:13)
--- NOTE | 2017-10-22 13:21 | ENT - Progress Note ---
Date of Encounter: 10/22/17 Time of Encounter: 14:18 - Assessment and Plan (1) Pharyngeal edema Current Visit: Yes Status: Acute Patient seen and examined at bedside today. Patient continues to report improvement in symptoms. Patient with good voice quality. Patient is tolerating liquids soft diet, and was able to swallow PO medications this A.M. Repeat Fiberoptic naso laryngoscopy performed today at bedside. Patient with fullness noted to right lateral side of pharynx suspicious for abscess. Continue IV antibiotics and IV decadron at this time, patient to have laryngoscopy with biopsy and potential incision and drainage of pharyngeal abscess in O.R. tomorrow. Consent signed. All questions answered. (2) Tonsillar hypertrophy Current Visit: No Status: Acute Asymmetry and enlargement of right tonsil remains present. Previous throat cultures obtained during last visit negative for strep. Continue IV clindamycin. Patient to have procedure in [facility]. tomorrow. (3) Acute airway obstruction Current Visit: No Status: Acute Patient reports continued improvement in symptoms and denies symptoms of dysphagia or shortness of breath. Stable airway at this time. (4) Pharyngeal mass Current Visit: Yes Status: Acute Fullness noted to right lateral pharyngeal wall upon visualization with flexible laryngoscopy today. This is suspicious for abscess. Consent signed for laryngoscopy with biopsy and potential incision and drainage of pharyngeal abscess in [facility].R. tomorrow. Subjective Patient reports: no new complaints, feels better, tolerating liquids well, voiding w/o difficulty, afebrile Objective Initial Vital Signs Temp Pulse Resp BP Pulse Ox 98.9 F 118 16 133/72 95 10/20/17 20:51 10/20/17 20:51 10/20/17 20:51 10/20/17 20:51 10/20/17 20:51 - General physical appearance well developed, well nourished, no distress, no pain - Eyes PERRL, normal ocular movement - ENT normal pinna, normal nares, CN 2-12 grossly intact, Other (patient with asymetrical enlargment of right tonsil and fullness of tonsillar pillar, upper and lower denture plate. ) - Neck no masses, trachea midline, no lymphadectomy - Respiratory normal expansion, normal respiratory effort - Psychiatric oriented to time, oriented to person, oriented to place, speech is normal - Labs 10/22/17 06:15 10/22/17 06:15 Diabetes panel 10/22/17 Range/Units 06:15 Sodium 130 L (136-145) mEq/L Potassium 4.2 (3.5-5.1) mEq/L Chloride 99 (98-107) mEq/L Carbon Dioxide 22 L (23-29) mEq/L BUN 19 (8-23) mg/dL Creatinine 0.57 L (0.70-1.30) mg/dL Glucose 156 H (70-105) mg/dL Calcium 8.8 (8.6-10.3) mg/dL Calcium panel 10/22/17 Range/Units 06:15 Calcium 8.8 (8.6-10.3) mg/dL Pituitary panel 10/22/17 Range/Units 06:15 Sodium 130 L (136-145) mEq/L Potassium 4.2 (3.5-5.1) mEq/L Chloride 99 (98-107) mEq/L Carbon Dioxide 22 L (23-29) mEq/L BUN 19 (8-23) mg/dL Creatinine 0.57 L (0.70-1.30) mg/dL Glucose 156 H (70-105) mg/dL Calcium 8.8 (8.6-10.3) mg/dL Adrenal panel 10/22/17 Range/Units 06:15 Sodium 130 L (136-145) mEq/L Potassium 4.2 (3.5-5.1) mEq/L Chloride 99 (98-107) mEq/L Carbon Dioxide 22 L (23-29) mEq/L BUN 19 (8-23) mg/dL Creatinine 0.57 L (0.70-1.30) mg/dL Glucose 156 H (70-105) mg/dL Calcium 8.8 (8.6-10.3) mg/dL Consult Discharge Plan - Plan Referrals: Gerald Rodriguez DO [Primary Care Provider] -
--- NOTE | 2017-10-22 14:20 | ENT - Procedure Note ---
Date of procedure: 10/22/17 Pre-op diagnosis: airway obstruction, pharyngeal mass Post-op diagnosis: other (airway obstruction, pharyngeal mass, possible pharyngeal abscess) Procedure: Flexible laryngoscopy: Procedure was explained to the patient at the bedside verbal consent was obtained. Bilateral nares are sprayed with a 50-50 mixture of oxymetazoline and topical lidocaine. Time was given to allow anesthesia as well as decongestion of the nasal airway. Flexible laryngoscope was then advanced into the left naris. Nasal mucosa was within normal limits without lesion or mass. Scope was further advanced, nasopharynx was within normal limits. Tonsil was enlarged on the right and did extend slightly inferiorly but this was less than last time scope was performed. There is also soft tissue swelling of the hypopharynx laterally on the right, This was also improved from last scope on previous admission as there was less erythema and edema and lesion did not extend as far inferior toward the glottis, the lesion is no longer abutting the AE fold or the false cord on the right. Lesion does appear to have a whitish sheen consistent with a pharyngeal abscess now that redundant mucosal swelling is decreased. True vocal cords had normal mucosa and normal movement with a good glottic opening. There was edema again that it was watery in nature and extended down the hypopharynx so that the edema was just superior to the glottis. No pooling of secretions. Piriform sinus was open and healthy on the left. Scope was removed. Patient tolerated this procedure well. Patient with thickening of the mucosa of the hypopharynx extending inferiorly, improved since last scope CPT: 33661 Laryngoscopy, flexible fiberoptic; diagnostic Anesthesia: topical Was there an surgical physician assistant present: No Estimated blood loss (cc): 0 Condition: stable
[2017-10-22] MEDS ORDERED: amLODIPine 5 MG TABLET PO ONE (16:45)
--- NOTE | 2017-10-22 16:46 | Internal Med Progress Note ---
Date of Encounter: 10/22/17 Time of Encounter: 10:30 - Assessment and plan (1) Tonsillitis Current Visit: Yes Status: Acute Assessment and plan: presented to ED with c/o neck pain and swelling on 10/17/17. Soft tissue neck CT with palatine tonsillar and pharyngeal soft tissue swelling. He was ttreated with IV ATB and setrpids but left AMA. He retunrs to ER on 10/20/17 with similar complaints. Evaluated by ENT in ED. Repeat soft tissue neck CT essentially unchanged. Repeat Fiberoptic naso laryngoscopy performed today at bedside. Patient with fullness noted to right lateral side of pharynx suspicious for abscess. Continue IV antibiotics and IV decadron at this time, patient to have laryngoscopy with biopsy and potential incision and drainage of pharyngeal abscess in O.R. tomorrow. ENT following (2) Pharyngeal edema Current Visit: Yes Status: Acute Assessment and plan: secondary to tonsillitis. Plan as noted above. (3) Essential hypertension Current Visit: No Status: Acute Assessment and plan: per hx. BP uncontrolled. Cont home BP medications. Increase CCB. Monitor BP and titrate PRN (4) DVT prophylaxis Current Visit: No Status: Acute Assessment and plan: heparin - Subjective Interval history: Seen and examined at bedside, patient is new to me. Information obtained from chart review and patient report. Still with the swelling in his neck but overall significantly improved. He is having trouble swallowing small pills and liquids this morning. ENT aware of admission. - Constitutional Vitals: Temp Pulse Resp BP Pulse Ox 97.8 F 87 16 169/73 96 10/22/17 16:22 10/22/17 16:22 10/22/17 16:22 10/22/17 16:22 10/22/17 16:22 General appearance: Present: A&O X 3, no acute distress, answers questions appropriately Internal Medicine: Result - Labs CBC & Chem 7: 10/22/17 06:15 10/22/17 06:15 Labs: Short CBC 10/22/17 Range/Units 06:15 WBC 8.4 (4.3-11.1) K/mcL Hgb 15.2 (12.9-16.9) g/dL Hct 44.6 (37.5-50.1) % Plt Count 278 D (140-400) K/mcL Neutrophils # 6.6 (1.6-8.9) K/mcL BMP 10/22/17 06:15 Sodium 130 L Potassium 4.2 Chloride 99 Carbon Dioxide 22 L BUN 19 Creatinine 0.57 L Glucose 156 H Calcium 8.8 Consult Discharge Plan - Plan Referrals: Gerald Rodriguez DO [Primary Care Provider] -
--- NOTE | 2017-10-22 19:58 | Anesthesia Evaluation PreOp ---
Date of Encounter: 10/22/17 Time of Encounter: 19:20 - Past History Planned Operation: PanEndoscopy with Bx, I and D Pharyngeal Abscess Cardiac History: [place] (Hx PTCA and CABG), HTN, Hyperlipidemia, Arrhythmia ( Chronic AFib on metoprolol), Cardiac Surgery (CABG) Pulmonary History: Denies Any Significant HX COIL BINDER History: Denies Any Significant HX Other Medical History: Denies Any Significant HX Anesthesia History: No Prior Anesthetic Complications Alcohol Use: none Drug use: none Medications and Allergies Aspirin [Lo-Dose Aspirin EC] 81 mg PO DAILY 10/17/17 [History] Finasteride [Proscar] 5 mg PO DAILY 10/17/17 [History] Gabapentin [Neurontin] 100 mg PO BID 10/17/17 [History] Nitroglycerin [Nitrostat] 0.4 mg SL Q5M PRN 10/17/17 [History] Simvastatin [Zocor] 20 mg PO HS 10/17/17 [History] Tamsulosin [Flomax] 0.4 mg PO DAILY 10/17/17 [History] Temazepam [Restoril] 30 mg PO HS 10/17/17 [History] amLODIPine [Norvasc] 5 mg PO DAILY 10/17/17 [History] 3 Allergy/AdvReac Type Severity Reaction Status Date / Time Amoxicillin Allergy Swelling Verified 10/20/17 20:50 of Lip/Tongue/Throat rivaroxaban [From Xarelto] AdvReac See Verified 10/17/17 06:56 Comments - Meds/Allergy Pre-op Review Medications Reviewed: Yes Allergies Reviewed: Yes Beta Blockers on Current Med List: Yes (on metoprolol) Anesthesia Results - Labs 10/22/17 06:15 10/22/17 06:15 - Imaging EKG: report reviewed (AFib Rt BBB) Additional studies: ECHO 2017LVEF 60%, mod pulm htn, moderate tricuspid regurge Anesthesia Exam O2 Sat O2 Sat by Pulse Oximetry 94 O2 Sat by Pulse Oximetry 96 O2 Sat by Pulse Oximetry 95 O2 Sat by Pulse Oximetry 96 O2 Sat by Pulse Oximetry 95 Vital Signs Temp Pulse Resp BP Pulse Ox 98.9 F 118 16 133/72 95 10/20/17 20:51 10/20/17 20:51 10/20/17 20:51 10/20/17 20:51 10/20/17 20:51 Height: 5'7 Weight: 160 lbs NPO (# of Hours): MN - HEENT Pupil (Motor): Pupils equal, EOMI Mallampati: III Teeth: Normal Oral Opening: Less than or equal to 3 (limited mouth opening) - COIL BINDER LOC: Oriented COIL BINDER Motor: Normal RUE, Normal LUE, Normal RLE, Normal LLE, Normal Face COIL BINDER Sensory: Normal: RUE, LUE, RLE, LLE, Face - Cardiac Rhythm: Regular Murmur: None JVD: No Carotid Bruit: No - Pulmonary Breath Sounds: bilateral Clear Respiratory Effort: Symmetrical Anesthesia Assess/Plan ASA Score: 3 (CAD AFib HTN) Modified [place] Scale for Level of Consciousness: Cooperative, oriented, and tranquil Anesthetic Plan: General Monitoring Plan: Standard Monitors Recovery Plan: PACU (Discussed possible Awake FOI, possible Glidescope, [place], agrees to proceed)
[2017-10-22] MEDS: Temazepam 15 MG CAPSULE PO SCH (21:22)
[2017-10-23] MEDS: *HR* Heparin 5,000 UNIT/ML VIAL SQ SCH ×3 (04:56→21:52)
[2017-10-23] MEDS: Gabapentin 100 MG CAPSULE PO SCH ×2 (09:45→21:51)
[2017-10-23] MEDS: Aspirin Enteric Coated 81 MG Tablet PO SCH (09:45)
[2017-10-23] MEDS: Dexamethasone 10 MG/ML VIAL IVP SCH (09:45)
[2017-10-23] MEDS: amLODIPine 5 MG TABLET PO SCH ×2 (09:45→16:28)
[2017-10-23] MEDS: Finasteride 5 MG TABLET PO SCH (09:46)
[2017-10-23] MEDS: Clindamycin 600 MG/50 ML 600 MG/50 ML IV.SOLN IVPB SCH ×2 (09:49→16:27)
[2017-10-23 09:51] LABS: BUN/Creatinine Ratio 42 (6-26); Blood Urea Nitrogen 24 mg/dL (8-23); Calcium 8.5 mg/dL (8.6-10.3); Carbon Dioxide 23 mEq/L (23-29); Chloride 99 mEq/L (98-107); Glucose 117 mg/dL (70-105); Osmolality,Calculated 273 (280-300); Potassium 4.1 mEq/L (3.5-5.1); Sodium 129 mEq/L (136-145); eGFR For African Americans > 60 (> 60); eGFR For Non-African Americans > 60 (> 60)
[2017-10-23] MEDS ORDERED: *HR* FentaNYL (PF) 100 MCG/2 ML VIAL ONE (10:30)
[2017-10-23] MEDS ORDERED: *HR* Propofol 200 MG/20 ML VIAL IVP ONE ×2 (10:30→11:20)
[2017-10-23] MEDS ORDERED: Lidocaine -MPF 2% 2 ML VIAL ONE (10:33)
[2017-10-23] MEDS ORDERED: *HR* EPINEPHrine 30 MG/30 ML MDV ONE (11:20)
[2017-10-23] MEDS ORDERED: Lidocaine -MPF 4% 5 ML AMPUL ONE (11:22)
[2017-10-23] MEDS ORDERED: *HR* Succinylcholine 200 MG/10 ML VIAL IVP ONE (11:24)
--- NOTE | 2017-10-23 11:25 | Operative Note ---
Date of procedure: 10/23/17 Procedure: Preoperative diagnosis: Airway obstruction, right pharyngeal mass, right pharyngeal abscess Postoperative diagnosis: Same Procedure: 1. Microlaryngoscopy with biopsy of right pharyngeal mass, CPT 78415 2. Incision and drainage of pharyngeal abscess. CPT 25780 Surgeon: Chaitanya King Handwriting Expert: N/A Specimens: Right pharyngeal abscess for tissue culture and pathology, aerobic and anaerobic culture right pharyngeal mass Anesthesia: Gen. endotracheal tube anesthesia Blood loss: 5 mL Indications: Patient is an 82-year-old gentleman that initially presented in the hospital for sore throat and difficulty swallowing. CT scan was performed at that time which showed inflammation of the tonsil and the hypopharyngeal wall extending down to the vallecula on the right side. Patient was scoped and airway was adequate at that time he was placed on antibiotics as well as steroids. Patient became aggravated and ended up leaving AMA the next day. Patient reported with worsening sore throat and was readmitted. Patient was placed back on the antibiotics as well as steroids. Scope states show an adequate airway and a swelling decreased on the right side it appeared that the abscess had formed long the right pharyngeal wall. Consent: The following procedure was recommended for the patient: Laryngoscopy with biopsy, esophagoscopy with possible biopsy, bronchoscopy with possible biopsy. Risks benefits alternatives to this procedure were discussed with the patient at length including but not limited to bleeding, infection, dysphasia, sore throat, jaw pain, damage to the teeth and gums, pulmonary embolism, CVA, [place] , possible need for further surgery. Patient understood these risks and all of his questions were answered. Consent was obtained in writing and this was placed in the chart. Findings: Right pharyngeal abscess with copious thick purulent debris approximately 20 mL Description of procedure in detail: The patient was taken to the operating room and there was placed supine on the operating room table. General endotracheal anesthesia was administered after endotracheal tube intubation was performed by the anesthesia service personnel. Bed was turned 90 degrees to the head was to the right hand side of anesthesia. The patient was thereafter prepped and draped in the usual sterile manner. Thereafter, timeout was performed. Tube was displaced to the left oral commissure. Multiple damp sponges were placed over the upper alveolar ridge. A rigid operating laryngoscope was then used to inspect the oropharynx. Once right pharyngeal mass was visualized multiple pictures were taken using a 0 degree scope with attached camera. Had a white sheen and was bulbous in nature and fluctuant with suctioning. Sickle knife was then used to shagufta the abscess. Copious purulent liquid was expressed from the abscess pocket. Aerobic and anaerobic cultures were taken. Some of the abscess capsule was biopsied using an up-biting cup forcep. The tip of the operating laryngoscope was used to milk remaining purulence from the abscess pocket. Oropharynx was then irrigated with saline. Rigid laryngoscope scope was then reinserted and the supraglottis and oropharynx was visualized for any significant bleeding. Patient was deemed hemostatic. Picture was taken after abscess was drained. Glottis now completely unobstructed area Rigid scope was then removed. Mouth was inspected after removal of damp sponges from the upper alveolar ridge. Patient was then turned over to anesthesia for arousal who subsequently secured the tube with tape and returning the bed to normal position. Patient tolerated the procedure well.without any apparent complication. Counts were correct at the end of the case. Was there an sales office assistant present: No Estimated blood loss (cc): 5 Specimen: culture and pathology right pharyngeal abscess
--- NOTE | 2017-10-23 11:26 | Discharge Summary ---
Outpatient Proc Discharge Plan - Plan Additional Instructions: Patient Guidelines Following Panendoscopy surgery 1. Take antibiotics as prescribed. 2. Avoid throat clearing and coughing. 3. Drink at least 64 ounces of water each day. 4. Avoid heavy lifting and strenuous exercise for 1 week. 5. If you are being treated for acid reflux or heartburn, please take her medications faithfully. 6. Drink plenty of fluids and eat soft foods initially. You may eat regular foods when the fill comfortable. Most patients have very little throat pain following surgery and are able to eat a regular diet in 1-2 days. 7. Try very hard to avoid smoking. 8. Avoid aspirin and aspirin products which may thin the blood. Advil, Motrin , Aleve, Naprosyn, ibuprofen can also thin the blood and should be avoided. Tylenol is safe to take an you may use a pain medication prescribed if needed. 9. Cough drops help with sore throat. 10. May use warm compresses to jaw joint if sore after procedure. 11. Sore throat lozenges like Cepacol or Chloraseptic can help with throat pain following the procedure. 12. Please call the office with any questions. [phone] Home Medications: Aspirin [Lo-Dose Aspirin EC] 81 mg PO DAILY 10/17/17 [History] Finasteride [Proscar] 5 mg PO DAILY 10/17/17 [History] Gabapentin [Neurontin] 100 mg PO BID 10/17/17 [History] Nitroglycerin [Nitrostat] 0.4 mg SL Q5M PRN 10/17/17 [History] Simvastatin [Zocor] 20 mg PO HS 10/17/17 [History] Tamsulosin [Flomax] 0.4 mg PO DAILY 10/17/17 [History] Temazepam [Restoril] 30 mg PO HS 10/17/17 [History] amLODIPine [Norvasc] 5 mg PO DAILY 10/17/17 [History]
[2017-10-23] MEDS ORDERED: Ondansetron 4 MG/2 ML VIAL ONE (12:30)
[2017-10-23] MEDS ORDERED: Dexamethasone 4 MG/ML VIAL ONE ×2 (12:30→12:31)
[2017-10-23] MEDS ORDERED: *HR* Labetalol 100 MG/20 ML MDV IVP PRN (12:36)
[2017-10-23] MEDS ORDERED: Ondansetron 4 MG/2 ML VIAL IVP ONE (12:36)
--- NOTE | 2017-10-23 13:12 | Anesthesia Evaluation Post Op ---
Date of Encounter: 10/23/17 Time of Encounter: 13:11 - Vital Signs Vital Signs: Selected Entries 10/23/17 12:57 10/23/17 13:07 Temperature 98.9 F Pulse Rate 89 Respiratory Rate 18 Blood Pressure 156/86 O2 Sat by Pulse Oximetry 96 - Lungs Lungs: Clear Ascult./Percussion - Airway Airway: Non-obstructed - Cardiovascular Regular Rate - Mental Status Mental Status: Alert & Oriented, Answers Appropriately - Pain Pain Scale: 0 Pain Scale used: Numeric (1 - 10) - Nausea Vomiting Nausea Vomiting: Not Present - Hydration Hydration: Ice chips, Has not voided - Discharge PostOp Status: Transfer Patient to floor
--- NOTE | 2017-10-23 16:24 | Internal Med Progress Note ---
Date of Encounter: 10/23/17 Time of Encounter: 11:00 - Assessment and plan (1) Tonsillitis Current Visit: Yes Status: Acute Assessment and plan: presented to ED with c/o neck pain and swelling on 10/17/17. Soft tissue neck CT with palatine tonsillar and pharyngeal soft tissue swelling. He was ttreated with IV ATB and setrpids but left AMA. He retunrs to ER on 10/20/17 with similar complaints. Evaluated by ENT in ED. Repeat soft tissue neck CT essentially unchanged. S/p microlaryngoscopy with biopsy of right pharyngeal mass and incision and drainage of pharyngeal abscess. ENT following (2) Pharyngeal edema Current Visit: Yes Status: Acute Assessment and plan: secondary to tonsillitis. Plan as noted above. (3) Essential hypertension Current Visit: No Status: Acute Assessment and plan: per hx. BP uncontrolled. Cont home BP medications. Increase CCB. Monitor BP and titrate PRN. BP elevated on 10/23 however he has not received morning medications. Give a.m. dose of amlodipine. Monitor BP (4) Hyponatremia Current Visit: No Status: Acute Assessment and plan: Na 132 on arrival and dropped to 129. Uosm, Faye normal. Serum osmolarity slightly decreased. No offending medications. Etiology unknown at this time. Remains neurologically intact. IV fluids. Monitor repeat sodium levels. Consult nephrology if no improvement (5) DVT prophylaxis Current Visit: No Status: Acute Assessment and plan: heparin - Subjective Interval history: Seen and examined at bedside; says he feels about the same. Does have some right-sided tenderness on his neck. No difficulty swallowing. No shortness of breath or trouble breathing. - Constitutional Vitals: Temp Pulse Resp BP Pulse Ox 98.0 F 96 14 175/79 95 10/23/17 15:55 10/23/17 15:55 10/23/17 15:55 10/23/17 15:55 10/23/17 15:55 General appearance: Present: A&O X 3, no acute distress, answers questions appropriately - Head Head exam: Present: atraumatic, normocephalic - Eye Eye exam: Present: PERRL, conjuntiva pink, sclera anicteric Pupils: Present: PERRL - Neck Neck exam general surgery: Present: supple, trachea midline. Absent: lymphadenopathy - Respiratory Respiratory exam: Present: CTAB. Absent: accessory muscle use, rales, rhonchi, wheezes - Cardiovascular Cardiovascular exam: Present: RRR, +S1, +S2. Absent: diastolic murmur, gallop, rubs, systolic murmur - GI/Abdominal GI/Abdominal exam: Present: normal bowel sounds, soft, no peritoneal signs. Absent: distended, tenderness - Extremities Exam Extremities exam: Present: warm, radial pulses palpable and symmetrical. Absent : calf tenderness, cyanotic, pedal edema - Neurological Exam Neurological exam: Present: CN II-XII intact, oriented X3, no focal deficits. Absent: pronater drift, facial droop, speech deficit - Skin Skin exam: Present: dry, intact Internal Medicine: Result - Labs CBC & Chem 7: 10/22/17 06:15 10/23/17 09:19 Labs: BMP 10/23/17 09:19 Sodium 129 L Potassium 4.1 Chloride 99 Carbon Dioxide 23 BUN 24 H Creatinine 0.57 L Glucose 117 H Calcium 8.5 L Consult Discharge Plan - Plan Additional Instructions: Patient Guidelines Following Panendoscopy surgery 1. Take antibiotics as prescribed. 2. Avoid throat clearing and coughing. 3. Drink at least 64 ounces of water each day. 4. Avoid heavy lifting and strenuous exercise for 1 week. 5. If you are being treated for acid reflux or heartburn, please take her medications faithfully. 6. Drink plenty of fluids and eat soft foods initially. You may eat regular foods when the fill comfortable. Most patients have very little throat pain following surgery and are able to eat a regular diet in 1-2 days. 7. Try very hard to avoid smoking. 8. Avoid aspirin and aspirin products which may thin the blood. Advil, Motrin , Aleve, Naprosyn, ibuprofen can also thin the blood and should be avoided. Tylenol is safe to take an you may use a pain medication prescribed if needed. 9. Cough drops help with sore throat. 10. May use warm compresses to jaw joint if sore after procedure. 11. Sore throat lozenges like Cepacol or Chloraseptic can help with throat pain following the procedure. 12. Please call the office with any questions. [phone] Referrals: Gerald Rodriguez, [Primary Care Provider] -
[2017-10-23] MEDS: 0.9 % Sodium Chloride 1,000 ML IVC SCH (18:16)
[2017-10-23] MEDS ORDERED: GuaiFENesin Liq 200 MG/10 ML UDC PO PRN (19:16)
[2017-10-23] MEDS ORDERED: GuaiFENesin Liq 200 MG/10 ML UDC PO SCH (20:00)
[2017-10-23] MEDS: Temazepam 15 MG CAPSULE PO SCH (21:51)
[2017-10-24] MEDS: Clindamycin 600 MG/50 ML 600 MG/50 ML IV.SOLN IVPB SCH ×4 (00:05→23:03)
[2017-10-24 05:19] LABS: Hematocrit 40.4 % (37.5-50.1); Mean Corpuscular HGB Conc 34.7 g/dL (31.6-35.5); Mean Corpuscular Hemoglobin 30.6 pg (28.0-33.3); Mean Corpuscular Volume 88.2 fL (83.0-100.0); Mean Platelet Volume 8.7 fL (9.4-12.4); Platelet Count 295 K/mcL (140-400); Red Blood Count 4.58 M/mcL (4.19-5.50); Red Cell Distribution Width 12.8 % (11.5-14.5)
[2017-10-24] MEDS: *HR* Heparin 5,000 UNIT/ML VIAL SQ SCH ×3 (05:26→20:50)
[2017-10-24 05:42] LABS: BUN/Creatinine Ratio 38 (6-26); Blood Urea Nitrogen 20 mg/dL (8-23); Calcium 8.1 mg/dL (8.6-10.3); Carbon Dioxide 25 mEq/L (23-29); Chloride 99 mEq/L (98-107); Glucose 117 mg/dL (70-105); Osmolality,Calculated 274 (280-300); Potassium 4.2 mEq/L (3.5-5.1); Sodium 130 mEq/L (136-145); eGFR For African Americans > 60 (> 60); eGFR For Non-African Americans > 60 (> 60)
[2017-10-24] MEDS: Finasteride 5 MG TABLET PO SCH (09:37)
[2017-10-24] MEDS: Aspirin Enteric Coated 81 MG Tablet PO SCH (09:37)
[2017-10-24] MEDS: amLODIPine 5 MG TABLET PO SCH (09:37)
[2017-10-24] MEDS: Gabapentin 100 MG CAPSULE PO SCH ×2 (09:37→20:50)
--- NOTE | 2017-10-24 14:39 | Discharge Summary ---
- NOTES TO OUTPATIENT PROVIDER Notes to Outpatient Provider: BP elevated while inpatient. At home amlodipine and metoprolol increased. Recommend repeat CMP within 1 week to follow up with sodium level Date of Encounter: 10/24/17 Time of Encounter: 14:36 - Discharge Diagnosis (1) Pharyngeal abscess Priority: Primary Status: Acute Comments: presented to ED with c/o neck pain and swelling on 10/17/17. Soft tissue neck CT with palatine tonsillar and pharyngeal soft tissue swelling. He was ttreated with IV ATB and steroids but left AMA. Returned to ER on 10/20/17 with similar complaints. Evaluated by ENT in ED. Repeat soft tissue neck CT essentially unchanged. S/p microlaryngoscopy with biopsy of right pharyngeal mass and incision and drainage of pharyngeal abscess on 10/23/2017. Continue IV clindamycin. ENT following (2) Essential hypertension Priority: Primary Status: Acute Comments: per hx. BP uncontrolled with SBP's in 170s. Home amlodipine increased. Cont home BB. Recommend follow-up with PCP within one week for BP recheck (3) Hyponatremia Priority: Primary Status: Acute Comments: Na 132 on admission. Dropped to 129 however per chart review he has been as low as 127. Urine osmolarity, urine sodium normal. Serum osmolarity slightly decreased. No offending medications. Etiology unknown at this time. He remained neurologically intact. Sodium level CXXX at time of discharge. Recommend repeat CMP with PCP within one week (4) DVT prophylaxis Priority: Primary Status: Acute Comments: heparin Hospital course: Seen and examined at bedside. Complains of some nausea no vomiting. Says he would like to go home today if possible. No discharge or shortness of breath. He is aware of plan to re-scope him today. - Time Spent with Patient Total time spent providing and/or coordinating discharge services: - Discharge Medications Home Medications: Aspirin [Lo-Dose Aspirin EC] 81 mg PO DAILY 10/17/17 [History] Finasteride [Proscar] 5 mg PO DAILY 10/17/17 [History] Gabapentin [Neurontin] 100 mg PO BID 10/17/17 [History] Nitroglycerin [Nitrostat] 0.4 mg SL Q5M PRN 10/17/17 [History] Simvastatin [Zocor] 20 mg PO HS 10/17/17 [History] Tamsulosin [Flomax] 0.4 mg PO DAILY 10/17/17 [History] Temazepam [Restoril] 30 mg PO HS 10/17/17 [History] amLODIPine [Norvasc] 5 mg PO DAILY 10/17/17 [History] Allergies/Adverse Reactions: 3 Allergy/AdvReac Type Severity Reaction Status Date / Time Amoxicillin Allergy Swelling Verified 10/20/17 20:50 of Lip/Tongue/Throat rivaroxaban [From Xarelto] AdvReac See Verified 10/17/17 06:56 Comments Date of admission: 10/23/17 16:17 Primary care physician: Gerald Rodriguez Discharging clinician: Sujey Bertrand Anticipated date of discharge: 10/24/17 - Constitutional Vitals: Temp Pulse Resp BP Pulse Ox 99.0 F 74 16 159/87 97 10/24/17 11:03 10/24/17 11:03 10/24/17 11:03 10/24/17 11:03 10/24/17 11:03 General appearance: Present: A&O X 3, no acute distress, answers questions appropriately - Head Head exam: Present: atraumatic, normocephalic - Eye Eye exam: Present: PERRL, conjuntiva pink, sclera anicteric Pupils: Present: PERRL - Neck Neck exam general surgery: Present: supple, trachea midline. Absent: lymphadenopathy - Respiratory Respiratory exam: Present: CTAB. Absent: accessory muscle use, rales, rhonchi, wheezes - Cardiovascular Cardiovascular exam: Present: RRR, +S1, +S2. Absent: diastolic murmur, gallop, rubs, systolic murmur - GI/Abdominal GI/Abdominal exam: Present: normal bowel sounds, soft, no peritoneal signs. Absent: distended, tenderness - Extremities Exam Extremities exam: Present: warm, radial pulses palpable and symmetrical. Absent : calf tenderness, cyanotic, pedal edema - Neurological Exam Neurological exam: Present: CN II-XII intact, oriented X3, no focal deficits. Absent: pronater drift, facial droop, speech deficit - Skin Skin exam: Present: dry, intact - Patient Status Disposition: Home, Self-Care Condition: Good - Discharge Instructions Follow Up With: Gerald Rodriguez DO [Primary Care Provider] - 10/30/17 1:00 pm Additional Instructions: Patient Guidelines Following Panendoscopy surgery 1. Take antibiotics as prescribed. 2. Avoid throat clearing and coughing. 3. Drink at least 64 ounces of water each day. 4. Avoid heavy lifting and strenuous exercise for 1 week. 5. If you are being treated for acid reflux or heartburn, please take her medications faithfully. 6. Drink plenty of fluids and eat soft foods initially. You may eat regular foods when the fill comfortable. Most patients have very little throat pain following surgery and are able to eat a regular diet in 1-2 days. 7. Try very hard to avoid smoking. 8. Avoid aspirin and aspirin products which may thin the blood. Advil, Motrin , Aleve, Naprosyn, ibuprofen can also thin the blood and should be avoided. Tylenol is safe to take an you may use a pain medication prescribed if needed. 9. Cough drops help with sore throat. 10. May use warm compresses to jaw joint if sore after procedure. 11. Sore throat lozenges like Cepacol or Chloraseptic can help with throat pain following the procedure. 12. Please call the office with any questions. [phone]
--- NOTE | 2017-10-24 16:27 | ENT - Progress Note ---
Date of Encounter: 10/24/17 Time of Encounter: 16:24 - Assessment and Plan (1) Pharyngeal abscess Current Visit: Yes Status: Acute Patient is status post incision and drainage of pharyngeal abscess performed in [facility].R. yesterday by Dr. Polanco. Patient seen and examined at bedside today. Repeat fiberoptic naso laryngoscopy performed today, which showed normal pharynx and larynx without re-accumulation of pharyngeal wall abscess. Patient is tolerating liquids and soft foods appropriately, and denies any symptoms of dysphagia. Patient does report some nausea and constipation which was discussed with hospitalist. Continue IV clindamycin at this time and may transition to oral at discharge. Patient may follow up in ENT office in one week for reassessment. ENT is signing off at this time. Subjective Patient reports: no new complaints, pain is less, tolerating liquids well, tolerating a regular diet, voiding w/o difficulty Objective Initial Vital Signs Temp Pulse Resp BP Pulse Ox 98.9 F 118 16 133/72 95 10/20/17 20:51 10/20/17 20:51 10/20/17 20:51 10/20/17 20:51 10/20/17 20:51 - General physical appearance well developed, well nourished, no distress - Eyes PERRL, normal ocular movement - ENT normal pinna, normal nares, normal mucosa, CN 2-12 grossly intact, Other (uvula midline, no redness in oropharynx, redundant right tonsil tissue present without swelling or exudate, laryngoscopy findings consistent with normal pharynx wiht no reaccumulation of abscess on right pharyngeal wall) - Abdomen soft, non tender - Psychiatric oriented to time, oriented to person, oriented to place - Labs 10/24/17 04:45 10/24/17 04:45 Diabetes panel 10/24/17 Range/Units 04:45 Sodium 130 L (136-145) mEq/L Potassium 4.2 (3.5-5.1) mEq/L Chloride 99 (98-107) mEq/L Carbon Dioxide 25 (23-29) mEq/L BUN 20 (8-23) mg/dL Creatinine 0.52 L (0.70-1.30) mg/dL Glucose 117 H (70-105) mg/dL Calcium 8.1 L (8.6-10.3) mg/dL Calcium panel 10/24/17 Range/Units 04:45 Calcium 8.1 L (8.6-10.3) mg/dL Pituitary panel 10/24/17 Range/Units 04:45 Sodium 130 L (136-145) mEq/L Potassium 4.2 (3.5-5.1) mEq/L Chloride 99 (98-107) mEq/L Carbon Dioxide 25 (23-29) mEq/L BUN 20 (8-23) mg/dL Creatinine 0.52 L (0.70-1.30) mg/dL Glucose 117 H (70-105) mg/dL Calcium 8.1 L (8.6-10.3) mg/dL Adrenal panel 10/24/17 Range/Units 04:45 Sodium 130 L (136-145) mEq/L Potassium 4.2 (3.5-5.1) mEq/L Chloride 99 (98-107) mEq/L Carbon Dioxide 25 (23-29) mEq/L BUN 20 (8-23) mg/dL Creatinine 0.52 L (0.70-1.30) mg/dL Glucose 117 H (70-105) mg/dL Calcium 8.1 L (8.6-10.3) mg/dL Consult Discharge Plan - Plan Additional Instructions: Patient Guidelines Following Panendoscopy surgery 1. Take antibiotics as prescribed. 2. Avoid throat clearing and coughing. 3. Drink at least 64 ounces of water each day. 4. Avoid heavy lifting and strenuous exercise for 1 week. 5. If you are being treated for acid reflux or heartburn, please take her medications faithfully. 6. Drink plenty of fluids and eat soft foods initially. You may eat regular foods when the fill comfortable. Most patients have very little throat pain following surgery and are able to eat a regular diet in 1-2 days. 7. Try very hard to avoid smoking. 8. Avoid aspirin and aspirin products which may thin the blood. Advil, Motrin , Aleve, Naprosyn, ibuprofen can also thin the blood and should be avoided. Tylenol is safe to take an you may use a pain medication prescribed if needed. 9. Cough drops help with sore throat. 10. May use warm compresses to jaw joint if sore after procedure. 11. Sore throat lozenges like Cepacol or Chloraseptic can help with throat pain following the procedure. 12. Please call the office with any questions. [phone] Referrals: Gerald Rodriguez DO [Primary Care Provider] - 10/30/17 1:00 pm
[2017-10-24] MEDS: Ondansetron 4 MG/2 ML VIAL IVP SCH ×2 (18:21→23:03)
[2017-10-24] MEDS: 0.9 % Sodium Chloride 1,000 ML IVC SCH ×2 (19:46→20:50)
[2017-10-24] MEDS: Temazepam 15 MG CAPSULE PO SCH (20:50)
[2017-10-25] MEDS: *HR* Heparin 5,000 UNIT/ML VIAL SQ SCH ×3 (05:22→23:57)
[2017-10-25] MEDS: Ondansetron 4 MG/2 ML VIAL IVP SCH ×3 (05:23→16:58)
[2017-10-25] MEDS: Gabapentin 100 MG CAPSULE PO SCH ×2 (09:41→19:44)
[2017-10-25] MEDS: Aspirin Enteric Coated 81 MG Tablet PO SCH (09:41)
[2017-10-25] MEDS: Finasteride 5 MG TABLET PO SCH (09:41)
[2017-10-25] MEDS: Clindamycin 600 MG/50 ML 600 MG/50 ML IV.SOLN IVPB SCH ×3 (09:42→23:56)
[2017-10-25] MEDS: amLODIPine 5 MG TABLET PO SCH (09:43)
[2017-10-25 10:19] LABS: BUN/Creatinine Ratio 36 (6-26); Blood Urea Nitrogen 18 mg/dL (8-23); Calcium 8.1 mg/dL (8.6-10.3); Carbon Dioxide 25 mEq/L (23-29); Chloride 96 mEq/L (98-107); Glucose 125 mg/dL (70-105); Osmolality,Calculated 263 (280-300); Potassium 3.5 mEq/L (3.5-5.1); Sodium 125 mEq/L (136-145); eGFR For African Americans > 60 (> 60); eGFR For Non-African Americans > 60 (> 60)
[2017-10-25 13:32] LABS: Thyroid Stimulating Hormone 1.853 mcIU/mL (0.340-5.600)
--- NOTE | 2017-10-25 15:26 | Internal Med Progress Note ---
Date of Encounter: 10/25/17 Time of Encounter: 12:30 - Assessment and plan (1) Pharyngeal abscess Current Visit: Yes Status: Acute Assessment and plan: presented to ED with c/o neck pain and swelling on 10/17/17. Soft tissue neck CT with palatine tonsillar and pharyngeal soft tissue swelling. He was ttreated with IV ATB and setrpids but left AMA. He retunrs to ER on 10/20/17 with similar complaints. Evaluated by ENT in ED. Repeat soft tissue neck CT essentially unchanged. S/p microlaryngoscopy with biopsy of right pharyngeal mass and incision and drainage of pharyngeal abscess on 10/23/17. Repeat scope on 10/24/17 with significant improvement. Continue IV clindamycin. ENT followed (2) Hyponatremia Current Visit: No Status: Acute Assessment and plan: Na 132 on arrival and dropped to 129. Uosm, Faye normal. Serum osmolarity slightly decreased. No offending medications. Etiology unknown at this time. Remains neurologically intact. IV fluids. Monitor repeat sodium levels. Na 125 on 10/25. Nephrology consulted (3) Essential hypertension Current Visit: No Status: Acute Assessment and plan: per hx. BP uncontrolled. Cont home BP medications. Increase CCB. Monitor BP and titrate PRN. BP elevated on 10/23 however he has not received morning medications. Give a.m. dose of amlodipine. Monitor BP (4) DVT prophylaxis Current Visit: Yes Status: Acute Assessment and plan: SCD - Subjective Interval history: Seen and examined at bedside; says he had an uneventful night. Has mild tenderness to right side of throat. No trouble swallowing no difficulty breathing. - Constitutional Vitals: Temp Pulse Resp BP Pulse Ox 97.9 F 89 16 146/75 96 10/25/17 11:35 10/25/17 11:35 10/25/17 11:35 10/25/17 11:35 10/25/17 11:35 General appearance: Present: A&O X 3, no acute distress, answers questions appropriately - Head Head exam: Present: atraumatic, normocephalic - Eye Eye exam: Present: PERRL, conjuntiva pink, sclera anicteric Pupils: Present: PERRL - Neck Neck exam general surgery: Present: supple, trachea midline. Absent: lymphadenopathy - Respiratory Respiratory exam: Present: CTAB. Absent: accessory muscle use, rales, rhonchi, wheezes - Cardiovascular Cardiovascular exam: Present: RRR, +S1, +S2. Absent: diastolic murmur, gallop, rubs, systolic murmur - GI/Abdominal GI/Abdominal exam: Present: normal bowel sounds, soft, no peritoneal signs. Absent: distended, tenderness - Extremities Exam Extremities exam: Present: warm, radial pulses palpable and symmetrical. Absent : calf tenderness, cyanotic, pedal edema - Neurological Exam Neurological exam: Present: CN II-XII intact, oriented X3, no focal deficits. Absent: pronater drift, facial droop, speech deficit - Skin Skin exam: Present: dry, intact Internal Medicine: Result - Labs CBC & Chem 7: 10/24/17 04:45 10/25/17 09:46 Labs: BMP 10/25/17 09:46 Sodium 125 L Potassium 3.5 Chloride 96 L Carbon Dioxide 25 BUN 18 Creatinine 0.50 L Glucose 125 H Calcium 8.1 L Consult Discharge Plan - Plan Additional Instructions: Patient Guidelines Following Panendoscopy surgery 1. Take antibiotics as prescribed. 2. Avoid throat clearing and coughing. 3. Drink at least 64 ounces of water each day. 4. Avoid heavy lifting and strenuous exercise for 1 week. 5. If you are being treated for acid reflux or heartburn, please take her medications faithfully. 6. Drink plenty of fluids and eat soft foods initially. You may eat regular foods when the fill comfortable. Most patients have very little throat pain following surgery and are able to eat a regular diet in 1-2 days. 7. Try very hard to avoid smoking. 8. Avoid aspirin and aspirin products which may thin the blood. Advil, Motrin , Aleve, Naprosyn, ibuprofen can also thin the blood and should be avoided. Tylenol is safe to take an you may use a pain medication prescribed if needed. 9. Cough drops help with sore throat. 10. May use warm compresses to jaw joint if sore after procedure. 11. Sore throat lozenges like Cepacol or Chloraseptic can help with throat pain following the procedure. 12. Please call the office with any questions. [phone] Referrals: Gerald Rodriguez DO [Primary Care Provider] - 10/30/17 1:00 pm
[2017-10-25] MEDS: Temazepam 15 MG CAPSULE PO SCH (19:44)
[2017-10-26] MEDS: Ondansetron 4 MG/2 ML VIAL IVP SCH ×2 (04:23→06:18)
[2017-10-26 06:14] LABS: BUN/Creatinine Ratio 35 (6-26); Blood Urea Nitrogen 18 mg/dL (8-23); Calcium 8.4 mg/dL (8.6-10.3); Carbon Dioxide 24 mEq/L (23-29); Chloride 95 mEq/L (98-107); Glucose 106 mg/dL (70-105); Osmolality,Calculated 266 (280-300); Potassium 3.6 mEq/L (3.5-5.1); Sodium 127 mEq/L (136-145); eGFR For African Americans > 60 (> 60); eGFR For Non-African Americans > 60 (> 60)
[2017-10-26] MEDS: *HR* Heparin 5,000 UNIT/ML VIAL SQ SCH (06:18)
[2017-10-26] MEDS: amLODIPine 5 MG TABLET PO SCH (09:12)
[2017-10-26] MEDS: Clindamycin 600 MG/50 ML 600 MG/50 ML IV.SOLN IVPB SCH (09:14)
[2017-10-26] MEDS: Aspirin Enteric Coated 81 MG Tablet PO SCH (09:16)
[2017-10-26] MEDS: Gabapentin 100 MG CAPSULE PO SCH (09:16)
[2017-10-26] MEDS: Finasteride 5 MG TABLET PO SCH (09:17)
--- NOTE | 2017-10-26 10:28 | Nephrology Consult Note ---
Date of Encounter: 10/26/17 Time of Encounter: 09:00 Assessment and Plan (1) Hyponatremia Status: Chronic Chronic hyponatremia with U osmo in the 600s, suggesting an inappropriately elevated osmolality in the face of chronic hyponatremia. 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 Of note, he does take OTC NSAIDs, which sometimes could contribute to hyponatremia. Asymptomatic and euvolemic. Chronic near 127-130, so he's at his baseline. I recommend he avoid NSAIDs, start a free water fluid restriction of <1L but a total fluid restriction of <1.5L per day, plus will add a short course of Nacl 1gm po bid. Reasonable to discharge today, I told him, so long as he follows up with labs and in the clinic. Recommend a BMP in about 1 week after discharge (to be routed to me) plus a nephrology appt in about 2-4 weeks. Thank you for consulting the [facility]. Discussed with the hospitalist. (2) BPH (benign prostatic hyperplasia) Status: Chronic Agree with Flomax. Rarely a partial obstruction can induce hyponatremia, so as an outpt, I'll plan to order a retroperitoneal U/S with PVR. Continue Flomax for now. Qualifiers: Lower urinary tract symptom presence: symptoms present Lower urinary tract symptom detail: nocturia Qualified Code(s): N40.1 - Benign prostatic hyperplasia with lower urinary tract symptoms; R35.1 - Nocturia; R35.1 - Nocturia (3) Essential hypertension Status: Chronic Agree with Amlodipine. Will need to be carefully monitored while on NaCl tablets. I reviewed the R/B/I and SE profile of NaCl. Would not add a thiazide diuretic d/t the hyponatremia. History of Present Illness - Reason for Consult Consult date: 10/25/17 hyponatremia Requesting physician: Sujey Bertrand - Chief Complaint Hyponatremia - History of Present Illness Harry Guzman is a very pleasant 82 y/o WM with a pmh of arthritis, and et al who presented with throat swelling. He was noted to have hyponatremia and nephrology was consulted. Earlier in the hospitalization he required an ENT procedure/surgery for a right pharyngeal abscess. Meanwhile, his PNa has flutuating from 127-130-127. He said that he's never seen a meters superintendent in the past. He denied having a FHx of ESRD. He said he does not routinely drink "lots of water" but he estimated about 3-5 glassess of less than 8oz per day, in addition to other fluids. He denied N/V/D or F/C or dysuria. He has never had seizures in the past, nor prior brain surgery. He had urine studies and TSH and Cortisol levels ordered yesterday. Past Med Surg Social Fam HX - Past Medical History Medical history: atrial fibrillation, hypertension - Social History Smoking Status: Never smoker Smokeless Tobacco Status: No Alcohol use: none Drug use: none - Family History Father Living Status: Hx Family Cardiac Disorders: Yes (CAD) Mother Living Status: Hx Family Cardiac Disorders: Yes (CHF) Medications and Allergies Aspirin [Lo-Dose Aspirin EC] 81 mg PO DAILY 10/17/17 [History] Finasteride [Proscar] 5 mg PO DAILY 10/17/17 [History] Gabapentin [Neurontin] 100 mg PO BID 10/17/17 [History] Nitroglycerin [Nitrostat] 0.4 mg SL Q5M PRN 10/17/17 [History] Simvastatin [Zocor] 20 mg PO HS 10/17/17 [History] Tamsulosin [Flomax] 0.4 mg PO DAILY 10/17/17 [History] Temazepam [Restoril] 30 mg PO HS 10/17/17 [History] Clindamycin HCl 300 mg PO Q8H #21 capsule 10/26/17 [Rx] Lactobacillus Acidophilus [Probiotic Acidophilus] 1.5 mg PO BID #60 capsule [Rx] Metoprolol [Lopressor] 25 mg PO BID #60 tablet 10/26/17 [Rx] Sodium Chloride 1,000 mg MC BID #14 tablet.smiley 10/26/17 [Rx] amLODIPine [Norvasc] 10 mg PO DAILY #60 tablet 10/26/17 [Rx] 3 Allergy/AdvReac Type Severity Reaction Status Date / Time Amoxicillin Allergy Swelling Verified 10/20/17 20:50 of Lip/Tongue/Throat rivaroxaban [From Xarelto] AdvReac See Verified 10/17/17 06:56 Comments Review of Systems All Systems: reviewed and no additional remarkable complaints except as stated Exam - Vital Signs Vital signs: Initial Vital Signs Temp Pulse Resp BP Pulse Ox 98.9 F 118 16 133/72 95 10/20/17 20:51 10/20/17 20:51 10/20/17 20:51 10/20/17 20:51 10/20/17 20:51 Vital Signs - Last 8 Hours Temp Pulse Resp BP Pulse Ox 10/26/17 06:45 98.1 F 97 14 167/88 10/26/17 03:13 98.0 F 63 17 140/63 93 Intake and Output 10/25/17 10/26/17 10/26/17 23:59 07:59 15:59 Intake Total 350 / 350 50 / 50 200 / 200 Output Total 200 / 200 500 / 500 Balance 150 / 150 50 / 50 -300 / -300 Intake: IV Fluids 50 / 50 50 / 50 Cleocin Premix 600 MG/50 ML 600 50 / 50 50 / 50 mg In 50 ml @ 50 mls/hr IVPB Q8HR COUNTS INCLUDE 234 BEDS AT THE [facility] Rx#:[id number] Oral 300 / 300 200 / 200 Output: Urine 200 / 200 500 / 500 Other: Meal Breakfast Percent of Meal Consumed 60% Weight 73.482 kg Patient Weight 10/26/17 23:59 Weight 73.482 kg - General Appearance General appearance: well-developed, well-nourished, appears started age EENT: ATNC, PERRL, mucous membranes moist Neck: supple Respiratory: clear Cardiology: no edema, normal S1, normal S2 Gastrointestinal: normoactive bowel sounds, no tenderness, no guarding Integumentary: no rash, warm and dry Neurologic: no focal deficit, no asterixis, alert and oriented x3 Musculoskeletal: no deformities, no erythema, no cyanosis Psychiatric: mood/affect appropriate, cooperative Results - Lab Results 10/24/17 04:45 10/26/17 04:30 Most recent lab results Calcium 8.4 mg/dL (8.6-10.3) L 10/26/17 04:30 Urine Sodium 107.6 mEq/L 10/23/17 11:10 I reviewed progress notes, labs, med lists (both home and inpatient), vitals, UOP, and prior imaging. Consult Discharge Plan - Plan Instructions: Clindamycin (By mouth), Metoprolol (By mouth), Probiotic (By mouth), Sodium Chloride (By mouth), Fluid Restriction (DC) Additional Instructions: Patient Guidelines Following Panendoscopy surgery 1. Take antibiotics as prescribed. 2. Avoid throat clearing and coughing. 3. Drink at least 64 ounces of water each day. 4. Avoid heavy lifting and strenuous exercise for 1 week. 5. If you are being treated for acid reflux or heartburn, please take her medications faithfully. 6. Drink plenty of fluids and eat soft foods initially. You may eat regular foods when the fill comfortable. Most patients have very little throat pain following surgery and are able to eat a regular diet in 1-2 days. 7. Try very hard to avoid smoking. 8. Avoid aspirin and aspirin products which may thin the blood. Advil, Motrin , Aleve, Naprosyn, ibuprofen can also thin the blood and should be avoided. Tylenol is safe to take an you may use a pain medication prescribed if needed. 9. Cough drops help with sore throat. 10. May use warm compresses to jaw joint if sore after procedure. 11. Sore throat lozenges like Cepacol or Chloraseptic can help with throat pain following the procedure. 12. Please call the office with any questions. [phone] Referrals: Cory Huynh DO [Partnered Physician] - (Please call for follow-up appointment within 2-3 weeks.) Sagrario Polanco DO [Non-Partnered Physician] - (Please call on Saturday to make a follow-up appointment within 1 week.) Gerald Rodriguez DO [Primary Care Provider] - 10/30/17 1:00 pm (Please call your primary care doctor on Saturday to schedule follow-up appointment within 1 week. He need a repeat basic metabolic panel drawn and results need to be sent to the meters superintendent Dr. Cory Huynh at [phone]) Prescriptions: amLODIPine [Norvasc] 10 mg PO DAILY #60 tablet Clindamycin HCl 300 mg PO Q8H #21 capsule Lactobacillus Acidophilus [Probiotic Acidophilus] 1.5 mg PO BID #60 capsule Metoprolol [Lopressor] 25 mg PO BID #60 tablet Sodium Chloride 1,000 mg MC BID #14 tablet.smiley
--- NOTE | 2017-10-26 10:42 | Discharge Summary ---
- NOTES TO OUTPATIENT PROVIDER Notes to Outpatient Provider: Will need to have repeat BMP in 1 week to follow up with hyponatremia. Results can be routed to reheater Dr. Cory Huynh Date of Encounter: 10/26/17 Time of Encounter: 10:39 - Discharge Diagnosis (1) Pharyngeal abscess Priority: Primary Status: Acute Comments: presented to ED with c/o neck pain and swelling on 10/17/17. Soft tissue neck CT with palatine tonsillar and pharyngeal soft tissue swelling. He was ttreated with IV ATB and setrpids but left AMA. He retunrs to ER on 10/20/17 with similar complaints. Evaluated by ENT in ED. Repeat soft tissue neck CT essentially unchanged. S/p microlaryngoscopy with biopsy of right pharyngeal mass and I&D of pharyngeal abscess on 10/23/17. Repeat scope on 10/24/17 with significant improvement. No dysphasia or dyspnea at time of discharge. Treated with IV clindamycin. Cont Clindamycin for one week at discharge. ENT followed. Follow- up with ENT outpatient (2) Hyponatremia Priority: Primary Status: Chronic Comments: Na drooped to 127; appears to be chronic per chart review. Asymptomatic, remained neurologically intact. TSH, fasting cortisol normal. U osmolarity in 600s. No obvious offending medications. 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 Of note patient reported taking OTC NSAIDs which nephrology noted could contribute to hyponatremia. Discharge home on short course of Nacl 1gm po bid and fluid restriction. Recommend BMP in one week. Follow-up with nephrology in 2-4 weeks. (3) Essential hypertension Priority: Primary Status: Chronic Comments: per hx. BP intermittently uncontrolled. Home CCB increased and low-dose BB added this admission with improvement and BP. Recommend follow-up with PCP within one week for BP recheck. Would avoid thiazide diuretics due to hyponatremia. Hospital course: Mr. Guzman is a 82 year old male with PMH HTN and BPH who presented to [facility] 10[facility]17 with painful swelling of his throat. He was found to have a pharyngeal abscess and underwent an I&D. He was also found to be hyponatremic which prolonged hospital stay. Pharyngeal abscess was treated with I&D and IV clindamycin with significant improvement in symptoms. Hyponatremia was found to be somewhat chronic; he was evaluated by nephrology and started on sodium chloride tablets. Discussed case with nephrology and alanay to discharge home from a nephrology standpoint with outpatient follow-up. He was discharged home in stable condition with outpatient follow-up. Please see assessment and plan for further details. Discharge discussed with: patient - Time Spent with Patient Total time spent providing and/or coordinating discharge services: Greater than 30 minutes (46 minutes spent on discharge) - Discharge Medications Prescriptions: amLODIPine [Norvasc] 10 mg PO DAILY #60 tablet Clindamycin HCl 300 mg PO Q8H #21 capsule Lactobacillus Acidophilus [Probiotic Acidophilus] 1.5 mg PO BID #60 capsule Metoprolol [Lopressor] 25 mg PO BID #60 tablet Sodium Chloride 1,000 mg MC BID #14 tablet.[email or web address] Home Medications: Aspirin [Lo-Dose Aspirin EC] 81 mg PO DAILY 10/17/17 [History] Finasteride [Proscar] 5 mg PO DAILY 10/17/17 [History] Gabapentin [Neurontin] 100 mg PO BID 10/17/17 [History] Nitroglycerin [Nitrostat] 0.4 mg SL Q5M PRN 10/17/17 [History] Simvastatin [Zocor] 20 mg PO HS 10/17/17 [History] Tamsulosin [Flomax] 0.4 mg PO DAILY 10/17/17 [History] Temazepam [Restoril] 30 mg PO HS 10/17/17 [History] Clindamycin HCl 300 mg PO Q8H #21 capsule 10/26/17 [Rx] Lactobacillus Acidophilus [Probiotic Acidophilus] 1.5 mg PO BID #60 capsule [Rx] Metoprolol [Lopressor] 25 mg PO BID #60 tablet 10/26/17 [Rx] Sodium Chloride 1,000 mg MC BID #14 tablet.smiley 10/26/17 [Rx] amLODIPine [Norvasc] 10 mg PO DAILY #60 tablet 10/26/17 [Rx] Allergies/Adverse Reactions: 3 Allergy/AdvReac Type Severity Reaction Status Date / Time Amoxicillin Allergy Swelling Verified 10/20/17 20:50 of Lip/Tongue/Throat rivaroxaban [From Xarelto] AdvReac See Verified 10/17/17 06:56 Comments Date of admission: 10/23/17 16:17 Primary care physician: Gerald Rodriguez Consults: 10/25/17 11:46 Consult to Physical Therapy [CONS] Routine Comment: Evaluate, develop and implement POC Reason for Consult: weakness 10/25/17 11:51 Consult to Occupational Therapy [CONS] Routine Comment: Evaluate, develop and implement POC Reason for Consult: weakness 10/25/17 12:14 Consult to Nephrology [CONS] Routine Consulting Provider: Kidney Leidy/YUDITH/KARLI/DAREK Reason for Consult: hyponatremia Call Completed: Yes Discharging clinician: Sujey Bertrand Anticipated date of discharge: 10/26/17 - Constitutional Vitals: Temp Pulse Resp BP Pulse Ox 98.1 F 97 14 167/88 93 10/26/17 06:45 10/26/17 06:45 10/26/17 06:45 10/26/17 06:45 10/26/17 03:13 General appearance: Present: A&O X 3, no acute distress, answers questions appropriately - Head Head exam: Present: atraumatic, normocephalic - Eye Eye exam: Present: PERRL, conjuntiva pink, sclera anicteric Pupils: Present: PERRL - Neck Neck exam general surgery: Present: supple, trachea midline. Absent: lymphadenopathy - Respiratory Respiratory exam: Present: CTAB. Absent: accessory muscle use, rales, rhonchi, wheezes - Cardiovascular Cardiovascular exam: Present: RRR, +S1, +S2. Absent: diastolic murmur, gallop, rubs, systolic murmur - GI/Abdominal GI/Abdominal exam: Present: normal bowel sounds, soft, no peritoneal signs. Absent: distended, tenderness - Extremities Exam Extremities exam: Present: warm, radial pulses palpable and symmetrical. Absent : calf tenderness, cyanotic, pedal edema - Neurological Exam Neurological exam: Present: CN II-XII intact, oriented X3, no focal deficits. Absent: pronater drift, facial droop, speech deficit - Skin Skin exam: Present: dry, intact - Patient Status Disposition: Home, Self-Care Condition: Good Overall status at discharge: patient is back to baseline - Discharge Instructions Instructions: Clindamycin (By mouth), Probiotic (By mouth), Metoprolol (By mouth), Fluid Restriction (DC) Follow Up With: Cory Huynh, [Partnered Physician] - (Please call for follow-up appointment within 2-3 weeks.) Gerald Rodriguez DO [Primary Care Provider] - 10/30/17 1:00 pm (Please call your primary care doctor on Saturday to schedule follow-up appointment within 1 week. He need a repeat basic metabolic panel drawn and results need to be sent to the reheater Dr. Cory Huynh at [phone]) Sagrario Polanco DO [Non-Partnered Physician] - (Please call on Saturday to make a follow-up appointment within 1 week.) Additional Instructions: Patient Guidelines Following Panendoscopy surgery 1. Take antibiotics as prescribed. 2. Avoid throat clearing and coughing. 3. Drink at least 64 ounces of water each day. 4. Avoid heavy lifting and strenuous exercise for 1 week. 5. If you are being treated for acid reflux or heartburn, please take her medications faithfully. 6. Drink plenty of fluids and eat soft foods initially. You may eat regular foods when the fill comfortable. Most patients have very little throat pain following surgery and are able to eat a regular diet in 1-2 days. 7. Try very hard to avoid smoking. 8. Avoid aspirin and aspirin products which may thin the blood. Advil, Motrin , Aleve, Naprosyn, ibuprofen can also thin the blood and should be avoided. Tylenol is safe to take an you may use a pain medication prescribed if needed. 9. Cough drops help with sore throat. 10. May use warm compresses to jaw joint if sore after procedure. 11. Sore throat lozenges like Cepacol or Chloraseptic can help with throat pain following the procedure. 12. Please call the office with any questions. [phone] - Diet and Activity Diet: advance to your usual diet, other (1 liter fluid restriction)
[2017-10-26 11:29] VITALS: BP 153/85
== END 2017-10-26 11:51 | disposition home or self-care (01) | DRG 153 ==
LOC: 3BNU 20:34 → EMEROO 20:34 → 3BNU 10-21 01:05
PROVIDERS: ADMIT Internal Medicine; ATTEND Registered Nurse

== ENCOUNTER 2021-02-16 15:41 | Observation (INO) ==
[2021-02-16 16:41] LABS: Basophils % 0.2 %; Eosinophils % 0.7 %; Hematocrit 39.3 % (37.5-50.1); Hemoglobin 13.6 g/dL (12.9-16.9); Immature Granulocytes % 0.2 % (0-4); Lymphocytes # 1.8 K/mcL (0.6-4.6); Lymphocytes % 29.7 %; Mean Corpuscular HGB Conc 34.6 g/dL (31.6-35.5); Mean Corpuscular Volume 92.5 fL (83.0-100.0); Mean Platelet Volume 9.3 fL (9.4-12.4); Monocytes # 0.7 K/mcL (0.0-1.3); Monocytes % 11.9 %; Neutrophils # 3.5 K/mcL (1.6-8.9); Platelet Count 164 K/mcL (140-400); Red Blood Count 4.25 M/mcL (4.19-5.50); Red Cell Distribution Width 12.8 % (11.5-14.5); Segmented Neutrophils % 57.3 %; White Blood Count 6.1 K/mcL (4.3-11.1)
[2021-02-16 16:53] LABS: Prothrombin Time 12.1 Seconds (9.4-12.1)
[2021-02-16 16:55] LABS: Activated Partial Thrombo Time 39.7 Seconds (26.0-36.0)
[2021-02-16 17:12] LABS: Alanine Aminotransferase 14 Units/L (7-52); Albumin 4.4 g/dL (3.5-5.7); Albumin/Globulin Ratio 1.8 (1.1-2.2); Alkaline Phosphatase 65 Units/L (34-104); Aspartate Amino Transferase 18 Units/L (13-39); BUN/Creatinine Ratio 20 (6-26); Bilirubin,Direct 0.4 mg/dL (0.0-0.2); Bilirubin,Indirect 2.1 mg/dL (0.0-1.0); Bilirubin,Total 2.5 mg/dL (0.3-1.0); Blood Urea Nitrogen 17 mg/dL (8-23); Calcium 9.4 mg/dL (8.6-10.3); Carbon Dioxide 25 mEq/L (23-29); Chloride 102 mEq/L (98-107); Globulin 2.4 g/dL (2.4-3.5); Glucose 116 mg/dL (70-105); Lipase 45 Units/L (11-82); Osmolality,Calculated 281 (280-300); Sodium 134 mEq/L (136-145); Total Protein 6.8 g/dL (6.4-8.9); Troponin I 0.04 ng/mL (< 0.04); eGFR For African Americans > 60 (> 60); eGFR For Non-African Americans > 60 (> 60)
[2021-02-16 17:26] LABS: Bilirubin,Urine Negative (Negative); Blood,Urine Negative (Negative); Clarity,Urine Clear (Clear); Color,Urine Light-Yellow (Yellow); Glucose,Urine (UA) Normal (Normal); Ketones,Urine Negative (Negative); Leukocyte Esterase,Urine Negative (Negative); Nitrite,Urine Negative (Negative); Protein,Urine Negative (Neg-Trace); Urobilinogen,Urine Normal (Normal)
[2021-02-16] MEDS ORDERED: Perflutren Lipid Microsphere 1.3 ML in 0.9 % Sodium Chloride 8.7 ML IVP PRN (20:19)
[2021-02-16] MEDS ORDERED: Nitroglycerin 0.4 MG TAB.SUBL SL PRN (20:19)
[2021-02-16] MEDS ORDERED: *HR* LORazepam 2 MG/ML VIAL IVP ONE (20:27)
[2021-02-16] MEDS ORDERED: Ondansetron 4 MG/2 ML VIAL IVP PRN (20:27)
[2021-02-16] MEDS ORDERED: Acetaminophen 325 MG TABLET PO PRN (20:27)
[2021-02-16] MEDS ORDERED: Naloxone 0.4 MG/ML INJ IVP PRN (20:27)
[2021-02-16] MEDS ORDERED: Morphine Sulfate 2 MG/ML SYRINGE IVP PRN (20:32)
[2021-02-16] MEDS ORDERED: amLODIPine 5 MG TABLET PO SCH (21:00)
[2021-02-16] MEDS ORDERED: *HR* Metoprolol 5 MG/5 ML VIAL IVP ONE (21:20)
[2021-02-16] MEDS: Gabapentin 100 MG CAPSULE PO SCH (21:28)
[2021-02-17 03:16] LABS: Hematocrit 39.5 % (37.5-50.1); Hemoglobin 13.2 g/dL (12.9-16.9); Mean Corpuscular HGB Conc 33.4 g/dL (31.6-35.5); Mean Corpuscular Hemoglobin 31.1 pg (28.0-33.3); Mean Corpuscular Volume 93.2 fL (83.0-100.0); Mean Platelet Volume 9.3 fL (9.4-12.4); Platelet Count 162 K/mcL (140-400); Red Blood Count 4.24 M/mcL (4.19-5.50); Red Cell Distribution Width 12.8 % (11.5-14.5); White Blood Count 7.5 K/mcL (4.3-11.1)
[2021-02-17 03:23] LABS: INR 1.1; Prothrombin Time 12.2 Seconds (9.4-12.1)
[2021-02-17 03:47] LABS: BUN/Creatinine Ratio 24 (6-26); Blood Urea Nitrogen 17 mg/dL (8-23); Calcium 8.9 mg/dL (8.6-10.3); Carbon Dioxide 22 mEq/L (23-29); Chloride 106 mEq/L (98-107); Chol/HDL Ratio 1.8 (0-4.9); Cholesterol 116 mg/dL (< 200); Glucose 109 mg/dL (70-105); HDL Cholesterol 66 mg/dL (40-59); LDL Cholesterol,Calculated 41 mg/dL (< 100); Magnesium 2.1 mg/dL (1.6-2.6); Osmolality,Calculated 284 (280-300); Potassium 3.8 mEq/L (3.5-5.1); Sodium 136 mEq/L (136-145); Triglycerides 47 mg/dL (< 150); eGFR For African Americans > 60 (> 60); eGFR For Non-African Americans > 60 (> 60)
[2021-02-17 03:50] LABS: Troponin I 0.05 ng/mL (< 0.04)
[2021-02-17] MEDS ORDERED: *HR* Heparin 5,000 UNIT/ML VIAL SQ SCH (06:00)
[2021-02-17] MEDS ORDERED: Finasteride 5 MG TABLET PO SCH (09:00)
[2021-02-17] MEDS ORDERED: Aspirin Enteric Coated 81 MG Tablet PO SCH (09:00)
[2021-02-17] MEDS ORDERED: lisinopriL 5 MG TABLET PO SCH (10:00)
[2021-02-17] MEDS ORDERED: Metoprolol XL (24 HR) Succ 50 MG TAB.ER.24H PO SCH (10:00)
[2021-02-17] MEDS: Gabapentin 100 MG CAPSULE PO SCH (11:25)
[2021-02-17 14:25] LABS: Estimated Average Glucose 114 mg/dl; Hemoglobin A1C 5.6 %
[2021-02-17 14:33] VITALS: BP 157/85
== END 2021-02-17 17:38 | disposition home or self-care (01) ==
LOC: EMEROOARM 15:41 → 3BNU 15:41 → SUATTDRO 18:23 → 3BNU 20:47
PROVIDERS: ADMIT Internal Medicine; ATTEND Nurse Practitioner

== ENCOUNTER 2021-03-23 18:10 | Observation (INO) ==
[2021-03-23] MEDS ORDERED: *HR* Labetalol 20 MG/4 ML SYRINGE IVP ONE (20:33)
[2021-03-23] MEDS ORDERED: lisinopriL 10 MG TABLET PO ONE (20:45)
[2021-03-23 21:20] LABS: Basophils % 0.3 %; Eosinophils # 0.1 K/mcL (0.0-0.6); Eosinophils % 0.8 %; Hematocrit 41.8 % (37.5-50.1); Immature Granulocytes % 0.3 % (0-4); Lymphocytes # 1.6 K/mcL (0.6-4.6); Lymphocytes % 26.9 %; Mean Corpuscular HGB Conc 33.5 g/dL (31.6-35.5); Mean Corpuscular Hemoglobin 31.4 pg (28.0-33.3); Mean Corpuscular Volume 93.7 fL (83.0-100.0); Mean Platelet Volume 9.3 fL (9.4-12.4); Monocytes # 0.7 K/mcL (0.0-1.3); Monocytes % 10.8 %; Neutrophils # 3.7 K/mcL (1.6-8.9); Platelet Count 157 K/mcL (140-400); Red Blood Count 4.46 M/mcL (4.19-5.50); Segmented Neutrophils % 60.9 %; White Blood Count 6.1 K/mcL (4.3-11.1)
[2021-03-23 21:27] LABS: INR 1.1; Prothrombin Time 12.9 Seconds (9.4-12.1)
[2021-03-23 21:30] LABS: Activated Partial Thrombo Time 37.8 Seconds (26.0-36.0)
[2021-03-23 21:45] LABS: Alanine Aminotransferase 19 Units/L (7-52); Albumin 4.4 g/dL (3.5-5.7); Alkaline Phosphatase 55 Units/L (34-104); Aspartate Amino Transferase 22 Units/L (13-39); BUN/Creatinine Ratio 18 (6-26); Bilirubin,Direct 0.6 mg/dL (0.0-0.2); Bilirubin,Indirect 2.5 mg/dL (0.0-1.0); Bilirubin,Total 3.1 mg/dL (0.3-1.0); Blood Urea Nitrogen 14 mg/dL (8-23); Calcium 9.2 mg/dL (8.6-10.3); Carbon Dioxide 23 mEq/L (23-29); Chloride 101 mEq/L (98-107); Ethanol < 10 mg/dL (Less than 10); Globulin 2.2 g/dL (2.4-3.5); Glucose 96 mg/dL (70-105); Osmolality,Calculated 278 (280-300); Potassium 4.1 mEq/L (3.5-5.1); Sodium 134 mEq/L (136-145); Total Protein 6.6 g/dL (6.4-8.9); Troponin I < 0.03 ng/mL (< 0.04); eGFR For African Americans > 60 (> 60); eGFR For Non-African Americans > 60 (> 60)
[2021-03-23 21:47] LABS: Bilirubin,Urine Negative (Negative); Blood,Urine Negative (Negative); Clarity,Urine Clear (Clear); Color,Urine Light-Yellow (Yellow); Glucose,Urine (UA) Normal (Normal); Ketones,Urine Negative (Negative); Leukocyte Esterase,Urine Negative (Negative); Nitrite,Urine Negative (Negative); PH,Urine 6.5 pH Units (5.0-8.0); Protein,Urine Negative (Neg-Trace); Specific Gravity,Urine 1.011 (1.010-1.025); Urobilinogen,Urine Normal (Normal)
[2021-03-23 21:52] LABS: Procalcitonin < 0.02 ng/mL (0.00-0.15)
[2021-03-23 21:56] LABS: Amphetamine Screen,Urine Negative ng/mL (Cutoff=1000); Barbiturate Screen,Urine Negative ng/mL (Cutoff=200); Benzodiazepines Screen,Urine Negative ng/mL (Cutoff=200); Cannabinoid Screen,Urine Negative ng/mL (Cutoff = 50); Cocaine Screen,Urine Negative ng/mL (Cutoff= 300); Opiate Screen,Urine Negative ng/mL (Cutoff=300); Phencyclidine Screen,Urine Negative ng/mL (Cutoff=25)
[2021-03-23 22:14] LABS: Adenovirus Not Detected (Not Detect); Coronavirus 229E Not Detected (Not Detect); Coronavirus HKU1 Not Detected (Not Detect); Coronavirus NL63 Not Detected (Not Detect); Coronavirus OC43 Not Detected (Not Detect); Human Metapneumovirus Not Detected (Not Detect); Human Rhinovirus/Enterovirus Not Detected (Not Detect); Influenza A Subtype 2009 H1 Not Detected (Not Detect); SARS-CoV-2 Not Detected (Not Detect)
[2021-03-23 22:15] LABS: Bordetella Pertussis Not Detected (Not Detect); Chlamydophila pneumoniae Not Detected (Not Detect); Influenza B Not Detected (Not Detect); Mycoplasma pneumoniae Not Detected (Not Detect); Parainfluenza Virus 1 Not Detected (Not Detect); Parainfluenza Virus 2 Not Detected (Not Detect); Parainfluenza Virus 3 Not Detected (Not Detect); Parainfluenza Virus 4 Not Detected (Not Detect); Respiratory Syncytial Virus Not Detected (Not Detect)
[2021-03-23] MEDS ORDERED: Furosemide 20 MG/2 ML VIAL IVP ONE (22:45)
[2021-03-24] MEDS ORDERED: Naloxone 0.4 MG/ML INJ IVP PRN (00:21)
[2021-03-24] MEDS ORDERED: Ondansetron 4 MG/2 ML VIAL IVP PRN (00:21)
[2021-03-24] MEDS ORDERED: Acetaminophen 325 MG TABLET PO PRN (00:21)
[2021-03-24 03:09] LABS: Hepatitis B Surface Antigen Nonreactive (Nonreactive)
[2021-03-24 03:38] LABS: Hepatitis C Virus Antibody Nonreactive (Nonreactive)
[2021-03-24 03:39] LABS: Hepatitis A Antibody IgM Nonreactive (Nonreactive); Hepatitis B Core IgM Nonreactive (Nonreactive)
[2021-03-24 03:53] LABS: Basophils % 0.2 %; Eosinophils # 0.1 K/mcL (0.0-0.6); Eosinophils % 0.9 %; Hematocrit 40.6 % (37.5-50.1); Hemoglobin 13.4 g/dL (12.9-16.9); Immature Granulocytes % 0.2 % (0-4); Lymphocytes # 1.3 K/mcL (0.6-4.6); Mean Corpuscular Hemoglobin 30.9 pg (28.0-33.3); Mean Corpuscular Volume 93.5 fL (83.0-100.0); Mean Platelet Volume 9.2 fL (9.4-12.4); Monocytes # 0.6 K/mcL (0.0-1.3); Monocytes % 10.7 %; Neutrophils # 3.7 K/mcL (1.6-8.9); Platelet Count 159 K/mcL (140-400); Red Blood Count 4.34 M/mcL (4.19-5.50); White Blood Count 5.7 K/mcL (4.3-11.1)
[2021-03-24 04:08] LABS: Alanine Aminotransferase 17 Units/L (7-52); Albumin 4.1 g/dL (3.5-5.7); Albumin/Globulin Ratio 2.1 (1.1-2.2); Alkaline Phosphatase 47 Units/L (34-104); Aspartate Amino Transferase 20 Units/L (13-39); BUN/Creatinine Ratio 20 (6-26); Blood Urea Nitrogen 14 mg/dL (8-23); Calcium 8.8 mg/dL (8.6-10.3); Carbon Dioxide 23 mEq/L (23-29); Chloride 101 mEq/L (98-107); Glucose 104 mg/dL (70-105); Osmolality,Calculated 279 (280-300); Potassium 3.5 mEq/L (3.5-5.1); Sodium 134 mEq/L (136-145); Total Protein 6.1 g/dL (6.4-8.9); eGFR For African Americans > 60 (> 60); eGFR For Non-African Americans > 60 (> 60)
[2021-03-24] MEDS: Melatonin 3 MG TABLET PO PRN (04:35)
[2021-03-24] MEDS: lisinopriL 5 MG TABLET PO SCH (08:18)
[2021-03-24] MEDS: Aspirin Enteric Coated 81 MG Tablet PO SCH (08:18)
[2021-03-24] MEDS: Finasteride 5 MG TABLET PO SCH (08:18)
[2021-03-24] MEDS: Metoprolol XL (24 HR) Succ 50 MG TAB.ER.24H PO SCH (08:18)
[2021-03-24] MEDS: amLODIPine 5 MG TABLET PO SCH ×2 (08:18→09:27)
[2021-03-24] MEDS: Gabapentin 100 MG CAPSULE PO SCH ×2 (08:18→19:42)
[2021-03-24] MEDS: Furosemide 20 MG/2 ML VIAL IVP SCH ×2 (09:27→19:47)
[2021-03-24] MEDS ORDERED: QUEtiapine Fumarate 25 MG TABLET PO ONE (18:11)
[2021-03-24] MEDS: Temazepam 15 MG CAPSULE PO SCH (19:41)
[2021-03-24] MEDS ORDERED: Haloperidol Lactate 5 MG/ML VIAL IM ONE ×2 (19:50→20:12)
[2021-03-25] MEDS ORDERED: Haloperidol Lactate 5 MG/ML VIAL IM ONE (01:51)
[2021-03-25] MEDS: *HR* Enoxaparin 40 MG/0.4 ML SYRINGE SQ SCH (05:09)
[2021-03-25 06:31] LABS: BUN/Creatinine Ratio 17 (6-26); Blood Urea Nitrogen 14 mg/dL (8-23); Carbon Dioxide 27 mEq/L (23-29); Chloride 101 mEq/L (98-107); Glucose 98 mg/dL (70-105); Osmolality,Calculated 284 (280-300); Phosphorous 3.2 mg/dL (2.7-4.5); Potassium 3.6 mEq/L (3.5-5.1); Sodium 137 mEq/L (136-145); eGFR For African Americans > 60 (> 60); eGFR For Non-African Americans > 60 (> 60)
[2021-03-25] MEDS: Aspirin Enteric Coated 81 MG Tablet PO SCH (08:47)
[2021-03-25] MEDS: Gabapentin 100 MG CAPSULE PO SCH ×2 (08:49→22:10)
[2021-03-25] MEDS: lisinopriL 5 MG TABLET PO SCH (08:50)
[2021-03-25] MEDS: Metoprolol XL (24 HR) Succ 50 MG TAB.ER.24H PO SCH (08:50)
[2021-03-25] MEDS: amLODIPine 5 MG TABLET PO SCH (08:50)
[2021-03-25] MEDS: Furosemide 20 MG/2 ML VIAL IVP SCH ×2 (08:51→22:10)
[2021-03-25] MEDS: Finasteride 5 MG TABLET PO SCH (11:25)
[2021-03-25] MEDS: QUEtiapine Fumarate 25 MG TABLET PO SCH (22:10)
[2021-03-25] MEDS: Temazepam 15 MG CAPSULE PO SCH (22:10)
[2021-03-26] MEDS ORDERED: *HR* Labetalol 20 MG/4 ML SYRINGE IVP ONE (04:28)
[2021-03-26] MEDS: *HR* Enoxaparin 40 MG/0.4 ML SYRINGE SQ SCH (05:04)
[2021-03-26] MEDS: Furosemide 20 MG/2 ML VIAL IVP SCH ×2 (07:29→20:31)
[2021-03-26] MEDS: Aspirin Enteric Coated 81 MG Tablet PO SCH (07:30)
[2021-03-26] MEDS: amLODIPine 5 MG TABLET PO SCH (07:30)
[2021-03-26] MEDS: Gabapentin 100 MG CAPSULE PO SCH ×2 (07:30→20:31)
[2021-03-26] MEDS: Finasteride 5 MG TABLET PO SCH (07:30)
[2021-03-26] MEDS: Metoprolol XL (24 HR) Succ 50 MG TAB.ER.24H PO SCH (07:31)
[2021-03-26] MEDS: lisinopriL 5 MG TABLET PO SCH (07:31)
[2021-03-26] MEDS: Melatonin 3 MG TABLET PO PRN (20:30)
[2021-03-26] MEDS: QUEtiapine Fumarate 25 MG TABLET PO SCH (20:31)
[2021-03-26] MEDS: Temazepam 15 MG CAPSULE PO SCH (20:31)
[2021-03-27 02:55] LABS: BUN/Creatinine Ratio 21 (6-26); Blood Urea Nitrogen 14 mg/dL (8-23); Calcium 8.7 mg/dL (8.6-10.3); Carbon Dioxide 26 mEq/L (23-29); Chloride 100 mEq/L (98-107); Glucose 95 mg/dL (70-105); Magnesium 1.9 mg/dL (1.6-2.6); Osmolality,Calculated 282 (280-300); Phosphorous 3.7 mg/dL (2.7-4.5); Potassium 3.4 mEq/L (3.5-5.1); Sodium 136 mEq/L (136-145); eGFR For African Americans > 60 (> 60); eGFR For Non-African Americans > 60 (> 60)
[2021-03-27] MEDS: *HR* Enoxaparin 40 MG/0.4 ML SYRINGE SQ SCH (06:08)
[2021-03-27 06:21] VITALS: BP 140/88; PULSE 70; TEMP 98.3; O2SAT 90
[2021-03-27] MEDS: Aspirin Enteric Coated 81 MG Tablet PO SCH (08:06)
[2021-03-27] MEDS: lisinopriL 5 MG TABLET PO SCH (08:06)
[2021-03-27] MEDS: Finasteride 5 MG TABLET PO SCH (08:06)
[2021-03-27] MEDS: Metoprolol XL (24 HR) Succ 50 MG TAB.ER.24H PO SCH (08:06)
[2021-03-27] MEDS: Gabapentin 100 MG CAPSULE PO SCH (08:06)
[2021-03-27] MEDS: amLODIPine 5 MG TABLET PO SCH (08:07)
[2021-03-27] MEDS: Furosemide 20 MG/2 ML VIAL IVP SCH (08:07)
== END 2021-03-27 16:39 | disposition home health service (06) ==
LOC: 2NENU 18:10 → EMEROOARM 18:10 → SUATTDRO 23:50 → 2NENU 03-24 01:05
PROVIDERS: ADMIT Family Medicine; ATTEND Internal Medicine